=== PATIENT | male | born 1990 | race Caucasian/White ===

== ENCOUNTER 2020-01-15 10:31 | Emergency (ER) | payer OTHER, SELFPAY ==
[2020-01-15 10:49] VITALS: BP 134/78; PULSE 81; RESP 20; TEMP 36.4; O2SAT 97
--- NOTE | 2020-01-15 11:10 | ED.DENTAL ---
HPI - Dental/Oral General Chief complaint: Dental/Oral Stated complaint: abscess tooth Time Seen by Provider: 01/15/20 10:56 Source: patient and RN notes reviewed Mode of arrival: ambulatory Limitations: no limitations History of Present Illness HPI Narrative: Patient presents today complaining of right lower dental pain since yesterday, worse today. States he had a tooth break off a few months ago while he was brushing. Currently rates his pain 10 and has been using ibuprofen and Orajel with relief. Smokes 1 pack/day. He is currently on day 10 of inpatient drug rehab at [facility]. Denies any additional symptoms. MD Complaint: tooth pain Related Data Home Medications Medication Instructions Recorded Confirmed buprenorphine-naloxone [Suboxone] 2 film BUCCAL TID 01/15/20 01/15/20 bupropion HCl [Wellbutrin SR] 100 mg PO DAILY 01/15/20 01/15/20 quetiapine [Seroquel] 25 mg PO BID 01/15/20 01/15/20 quetiapine [Seroquel] 100 mg PO HS 01/15/20 01/15/20 Allergies Allergy/AdvReac Type Severity Reaction Status Date / Time No Known Allergies Allergy Verified 01/15/20 10:59 Review of Systems Review of Systems: Narrative: CONSTITUTIONAL: Denies body aches, fever, chills, or sweats. EYES: Denies visual changes, redness, or discharge. ENT: Denies rhinorrhea, congestion, sore throat, or otalgia.+ Dental pain CARDIOVASCULAR: Denies chest pain, palpitations, or edema. RESPIRATORY: Denies cough or dyspnea. GASTROINTESTINAL: Denies abdominal pain, nausea, vomiting, or diarrhea. GENITOURINARY: Denies dysuria or hematuria. SKIN: Denies rash, itching, or wounds. MUSCULOSKELETAL: Denies back pain, joint pain, or myalgia. NEUROLOGIC: Denies headache, numbness, tingling, or weakness. PSYCH: Denies depression or anxiety. [facility] Social History Social History (Updated 01/15/20 @ 11:11 by Valencia Goldstein, EXTRUDER, ) Substance use: former Substance use type: former substance user, heroin and amphetamines Gender identity (if verbalized by the patient): Male Comments At time of signature, I have reviewed and agree with nursing past medical, surgical, social and family history unless otherwise noted. Please see nursing chart for further information. There is no relevant family history pertinent to the presenting complaint Exam Narrative: Exam Narrative: GENERAL: Well-appearing, well-nourished, and in no acute distress. HEAD: Normocephalic, atraumatic. EYES: EOMI. No redness or drainage. Conjunctivae normal. ENT: Mucous membranes pink and moist. Throat normal. Uvula midline. Tooth #31 and 32 are broken off at the gumline and brown in color. Mild surrounding erythema and edema of the gingiva. No obvious periapical abscess. Poor dentition throughout. NECK: Normal AROM. Supple. No lymphadenopathy. CHEST: No respiratory distress. EXTREMITIES: Normal range of motion. No edema. SKIN: Warm, dry, no rash. Capillary refill normal. Normal skin turgor. NEURO: No focal deficits. Alert and oriented x3. Gait steady. PSYCH: Normal affect. No signs of depression or anxiety. Course Vital Signs Vital signs: Vital Signs Temperature 97.5 F L 01/15/20 10:49 Pulse Rate 81 01/15/20 10:49 Respiratory Rate 20 01/15/20 10:49 Blood Pressure 134/78 01/15/20 10:49 Pulse Oximetry 97 01/15/20 10:49 Temperature 97.5 F L 01/15/20 10:49 Pulse Rate 81 01/15/20 10:49 Respiratory Rate 20 01/15/20 10:49 Blood Pressure 134/78 01/15/20 10:49 Pulse Oximetry 97 01/15/20 10:49 Reviewed. Pt has been instructed to follow up with his PCP regarding his elevated blood pressure today. MDM - Dental/Oral Differential Diagnosis Differential diagnosis: Likely gingival abscess, dental caries, toothache, dental abscess and fracture of tooth Critical Care Time Critical Care Time Critical Care Time: No Discharge Plan Discharge Clinical Impression: Infected dental caries Patient Disposition: Home, Self-Care Condition: St
== END 2020-01-15 11:18 | disposition home or self-care (01) ==
PROVIDERS: Emergency Provider Nurse Practitioner
DX: K02.9 Dental caries, unspecified (principal); I10 Essential (primary) hypertension; F41.9 Anxiety disorder, unspecified
CPT/HCPCS: 99213; G0463

== ENCOUNTER 2020-03-13 00:20 | Emergency (ER) | payer OTHER, SELFPAY ==
[2020-03-13 00:19] VITALS: BP 121/76; PULSE 96; RESP 14; TEMP 37.1; O2SAT 98
[2020-03-13 00:26] VITALS: RESP 14
--- NOTE | 2020-03-13 00:29 | ED.OVERDOSE ---
HPI - Overdose General Chief Complaint: Overdose Stated Complaint: od History of Present Illness HPI Narrative: Brought in by EMS from home for a heroin overdose. He was found unresponsive with a needle in his arm. He was given 4 mg intranasal narcan and regained consciousness. He admits to using heroin. He was not attempting to harm himself. He has no complaints at this time. Related Data Home Medications Medication Instructions Recorded Confirmed buprenorphine-naloxone [Suboxone] 2 film BUCCAL TID 01/15/20 01/15/20 bupropion HCl [Wellbutrin SR] 100 mg PO DAILY 01/15/20 01/15/20 quetiapine [Seroquel] 25 mg PO BID 01/15/20 01/15/20 quetiapine [Seroquel] 100 mg PO HS 01/15/20 01/15/20 Allergies Allergy/AdvReac Type Severity Reaction Status Date / Time No Known Allergies Allergy Verified 03/13/20 00:27 Review of Systems Review of Systems: All systems reviewed & are unremarkable except as noted in HPI and below Constitutional: Constitutional: Denies fever(s) Cardiovascular: Cardiovascular: Denies chest pain Respiratory: Respiratory: Denies dyspnea Gastrointestinal: Gastrointestinal: Denies abdominal pain [facility] Social History Social History (Updated 03/13/20 @ 04:48 by Yehuda Carty MD) Substance use: current Substance use type: heroin and amphetamines Gender identity (if verbalized by the patient): Male Exam Const: General: healthy appearing, no acute distress and alert Orientation/consciousness: patient oriented x3 HENMT: Head: normal to inspection Eyes: Pupils: Equal, round and reactive pupils present Resp: Effort & Inspection: normal respiratory effort Auscultation: clear to auscultation bilaterally Cardio: Rate: regular rate Rhythm: regular rhythm GI: GI Palp: Yes Soft to palpation and No Tenderness to palpation present (GI) Neuro: General: patient oriented x3, moves all extremities, no focal motor deficits and CN's II-XI intact bilaterally Speech: normal speech Course Vital Signs Vital signs: Vital Signs Temperature 37.1 C 03/13/20 00:19 Pulse Rate 96 03/13/20 00:19 Respiratory Rate 14 03/13/20 00:19 Blood Pressure 121/76 03/13/20 00:19 Pulse Oximetry 98 03/13/20 00:19 Temperature 37.1 C 03/13/20 00:19 Pulse Rate 93 03/13/20 01:43 Respiratory Rate 16 03/13/20 01:43 Blood Pressure 116/70 03/13/20 01:43 Pulse Oximetry 99 03/13/20 01:43 MDM - Overdose MDM Narrative Medical decision making narrative: Observed for 90 minutes after narcan. Discharge Plan Discharge Clinical Impression: Heroin overdose Qualifiers: Encounter type: initial encounter Injury intent: accidental or unintentional Qualified Code(s): T40.1X1A - Poisoning by heroin, accidental (unintentional), initial encounter Patient Disposition: Home, Self-Care Condition: Stable Instructions: Adult Overdose (ED) Prescriptions: No Action quetiapine [Seroquel] 25 mg Tablet 25 mg PO BID RF: 0 quetiapine [Seroquel] 100 mg Tablet 100 mg PO HS RF: 0 bupropion HCl [Wellbutrin SR] 100 mg Tablet Sustained-Release 12 Hr 100 mg PO DAILY RF: 0 buprenorphine-naloxone [Suboxone] 2-0.5 mg Film 2 film BUCCAL TID RF: 0 amoxicillin 875 mg tablet 875 mg PO Q12H 10 Days Qty: 20 RF: 0 ibuprofen 800 mg tablet 800 mg PO TID PRN (Reason: pain) Qty: 20 RF: 0 Follow-up/Referrals: PHYSICIAN NOT ON STAFF,NONSTAFF [Primary Care Provider] - Discharge Date/Time: 03/13/20 01:43
[2020-03-13 00:30] VITALS: BP 117/72; PULSE 94; RESP 14; O2SAT 94
[2020-03-13 01:15] VITALS: BP 120/81; PULSE 79; RESP 11; O2SAT 96
[2020-03-13 01:43] VITALS: BP 116/70; PULSE 93; RESP 16; O2SAT 99
== END 2020-03-13 01:43 | disposition home or self-care (01) ==
PROVIDERS: Emergency Provider Emergency Medicine
DX: T40.1X1A Poisoning by heroin, accidental (unintentional), initial encounter (principal)
CPT/HCPCS: 99281

== ENCOUNTER 2020-05-20 06:23 | Emergency (ER) | payer OTHER, SELFPAY ==
[2020-05-20 06:28] VITALS: BP 139/91; PULSE 105; RESP 20; TEMP 36.6; O2SAT 100
[2020-05-20 06:57] LABS: Basophils Percent Auto 0.5 % (0.2-1.2); Eosinophils Absolute Auto 0.4 K/mm3 (0-0.3); Eosinophils Percent Auto 4.6 % (0-4.4); Hematocrit 40.1 % (42.0-52.0); Hemoglobin 14.1 g/dL (14.0-18.0); Immature Granulocyte Absolute 0.02 K/mm3 (0.00-0.031); Immature Granulocyte Percent A 0.2 % (0-0.5); Lymphocytes Absolute Auto 2.19 K/mm3 (0.9-3.2); Lymphocytes Percent Auto 24.9 % (18.3-44.2); Mean Corpuscular HGB Conc 35.2 g/dl (32-36); Mean Corpuscular Hemoglobin 31.1 pg (26-34); Mean Corpuscular Volume 88.3 fl (80-100); Mean Platelet Volume 11.4 fl (7.4-10.4); Monocytes Absolute Auto 0.8 K/mm3 (0.1-0.6); Monocytes Percent Auto 9.1 % (2.6-8.5); Neutrophils Absolute Auto 5.3 K/mm3 (1.3-6.7); Neutrophils Percent Auto 60.7 % (45.5-73.1); Platelet Count Result 166 k/mm3 (150-375); Red Blood Count 4.54 M/mm3 (4.6-6.20); Red Cell Distribution Width 11.4 % (11.5-14.5); White Blood Count 8.8 K/mm3 (4.5-10.0)
[2020-05-20 07:05] LABS: Creatine Kinase 155 U/L (55-170)
[2020-05-20 07:08] LABS: Alanine Aminotransferase 25 U/L (4-50); Albumin Level 4.3 g/dL (3.5-5.1); Alkaline Phosphatase 61 U/L (38-126); Anion Gap 8 mmol/L (8-16); Aspartate Amino Transferase 26 U/L (17-59); Bilirubin,Total 0.6 mg/dL (0.2-1.3); Blood Urea Nitrogen 26 mg/dL (9-20); Calcium 9.1 mg/dL (8.4-10.2); Carbon Dioxide 32 mmol/L (22-30); Chloride 100 mmol/L (98-107); Estimated CRCL calculation 127 ml/min; Estimated Glomerular Filt Rate > 60; Glucose 106 mg/dL (75-110); Sodium 140 mmol/L (137-145)
[2020-05-20 07:11] LABS: Ethanol < 10 mg/dL (<10)
[2020-05-20 07:14] LABS: Potassium 3.7 mmol/L (3.4-5.0)
--- NOTE | 2020-05-20 07:50 | ED.GENADULT ---
HPI - General Adult General Chief complaint: Unspecified Stated complaint: drug use Time Seen by Provider: 05/20/20 07:38 Source: patient and EMS History of Present Illness HPI narrative: 30 years old white female brought to the emergency room by ambulance. Patient lives with his family who called the ambulance because been taken drugs. Patient told me that he been using meth every day then quit and started using it every 3 weeks lately. Seem like patient had heroin, Seroquel and meth last night thus why his family called the ambulance. Patient denies any fever, chills, nausea, vomiting, headache, sore throat, shortness of breath, chest pain, back pain or abdominal pain. Patient also denies any suicidal or homicidal ideation. Currently feeling okay and would like to go home. Patient uses drugs, denies drinking alcohol or using marijuana. Related Data Home Medications Medication Instructions Recorded Confirmed buprenorphine-naloxone [Suboxone] 2 film BUCCAL TID 01/15/20 01/15/20 bupropion HCl [Wellbutrin SR] 100 mg PO DAILY 01/15/20 01/15/20 quetiapine [Seroquel] 25 mg PO BID 01/15/20 01/15/20 quetiapine [Seroquel] 100 mg PO HS 01/15/20 01/15/20 Allergies Allergy/AdvReac Type Severity Reaction Status Date / Time No Known Allergies Allergy Verified 03/13/20 00:27 Review of Systems Review of Systems: Narrative: CONSTITUTIONAL: Denies fever, chills, or sweats. EYES: Denies visual changes, redness, or discharge. ENT: Denies rhinorrhea, congestion, sore throat, or otalgia. CARDIOVASCULAR: Denies chest pain, palpitations, or edema. RESPIRATORY: Denies cough or dyspnea. GASTROINTESTINAL: Denies abdominal pain, nausea, vomiting, or diarrhea. GENITOURINARY: Denies dysuria or hematuria. SKIN: Denies rash or itching. MUSCULOSKELETAL: Denies back pain, joint pain, or myalgia. NEUROLOGIC: Denies headache, numbness, or weakness. PSYCHIATRIC: Denies anxiety or depression. [facility] Social History Social History (Updated 03/13/20 @ 04:48 by Yehuda Carty MD) Substance use: current Substance use type: heroin and amphetamines Gender identity (if verbalized by the patient): Male Exam Narrative: Exam Narrative: General appearance: Well-developed, well-nourished Skin: Normal color Head: Normocephalic, nontraumatic Eyes: Clear conjunctiva ENT: Oropharynx normal, ears normal, nose normal Neck: Supple, nontender Chest and respiratory: Airway patent, no respiratory distress, no accessory muscle use Heart: Regular rate/rhythm Abdomen: Soft, nontender, no organomegaly, quiet bowel sounds Vascular: Normal peripheral pulses, normal capillary refill. Musculoskeletal: Normal range of motion, nontender back Neurologic: Alert and oriented ?3, [employer] is normal as tested, no gross motor deficit Course Course Emergency Course: Improved Vital Signs Vital signs: Vital Signs Temperature 36.6 C 05/20/20 06:28 Pulse Rate 105 H 05/20/20 06:28 Respiratory Rate 20 05/20/20 06:28 Blood Pressure 139/91 H 05/20/20 06:28 Pulse Oximetry 100 05/20/20 06:28 Temperature 36.6 C 05/20/20 06:28 Pulse Rate 105 H 05/20/20 06:28 Respiratory Rate 20 05/20/20 06:28 Blood Pressure 139/91 H 05/20/20 06:28 Pulse Oximetry 100 05/20/20 06:28 Medical Decision Making [facility] Narrative Medical decision making narrative: Patient presents with using drugs. Denying any suicidal or homicidal ideation. Blood work-up showed no acute abnormalities, currently patient feeling okay, awake alert oriented x4. Patient is ready to go home. Differential Diagnosis Differential Diagnosis: Drug abuse, depression Vital Signs Vital Signs: Vital Signs Temperature 36.
[2020-05-20 08:09] VITALS: PULSE 92; RESP 16
== END 2020-05-20 08:12 | disposition home or self-care (01) ==
PROVIDERS: General Practice; Emergency Provider Emergency Medicine; PCP Family Medicine
DX: F19.10 Other psychoactive substance abuse, uncomplicated (principal)
CPT/HCPCS: 36415; 80053; 80307; 82550; 84443; 85025; 99283

== ENCOUNTER 2020-11-06 03:57 | Emergency (ER) | payer OTHER, SELFPAY ==
[2020-11-06 03:55] VITALS: BP 128/82; PULSE 109; RESP 18; O2SAT 93
--- NOTE | 2020-11-06 03:57 | ED.GENADULT ---
HPI - General Adult General Chief complaint: Unspecified Stated complaint: manic Time Seen by Provider: 11/06/20 03:57 History of Present Illness HPI narrative: EMS called out for unresponsive episode. When they arrived they found him drowsy and confused. He admits to injecting what he thought was meth. He says that it may have contained something else that had this effect. He was not trying to harm himself. He is currently in the process of getting placed in treatment. Related Data Home Medications Medication Instructions Recorded Confirmed buprenorphine-naloxone [Suboxone] 2 film BUCCAL TID 01/15/20 01/15/20 bupropion HCl [Wellbutrin SR] 100 mg PO DAILY 01/15/20 01/15/20 quetiapine [Seroquel] 25 mg PO BID 01/15/20 01/15/20 quetiapine [Seroquel] 100 mg PO HS 01/15/20 01/15/20 Allergies Allergy/AdvReac Type Severity Reaction Status Date / Time No Known Allergies Allergy Verified 03/13/20 00:27 Review of Systems Review of Systems: All systems reviewed & are unremarkable except as noted in HPI and below Constitutional: Constitutional: Reports no additional constitutional complaints ENT: Reports system reviewed and no additional complaints, except as documented Cardiovascular: Cardiovascular: Reports no additional cardiovascular complaints Respiratory: Respiratory: Reports no additional respiratory complaints Gastrointestinal: Gastrointestinal: Reports no additional gastrointestinal complaints Genitourinary: Genitourinary: Reports no additional male genitourinary complaints Musculoskeletal: Musculoskeletal: Reports no additional musculoskeletal complaints Neurologic: Reports confusion Psychiatric: Psychiatric: Denies homicidal ideation and Denies suicidal ideation [facility] Social History Social History Substance use: current Substance use type: heroin and amphetamines Gender identity (if verbalized by the patient): Male Exam Const: General: cooperative, comfortable and no acute distress Nutritional Appearance: average body habitus HENMT: Head: normal to inspection Mouth: Yes Normal oral and palatal mucosa present Eyes: General: appearance normal, both eyes and all related structures Pupils: Equal, round and reactive pupils present Neck: Neck: normal visual inspection Resp: Effort & Inspection: normal respiratory effort Auscultation: clear to auscultation bilaterally Cardio: Rate: tachycardic Rhythm: regular rhythm Heart sounds: no murmurs Skin: General skin exam: normal color Neuro: General: patient oriented x3, moves all extremities, no focal motor deficits and CN's II-XI intact bilaterally Course Vital Signs Vital signs: Vital Signs Pulse Rate 109 H 11/06/20 03:55 Respiratory Rate 18 11/06/20 03:55 Blood Pressure 128/82 11/06/20 03:55 Pulse Oximetry 93 11/06/20 03:55 Pulse Rate 98 11/06/20 05:11 Respiratory Rate 18 11/06/20 05:11 Blood Pressure 126/92 H 11/06/20 05:11 Pulse Oximetry 99 11/06/20 05:11 Medical Decision Making MDM Narrative Medical decision making narrative: Awake and alert on arrival. No intent to harm himself. Observed for a short time and feeling ready for discharge. Differential Diagnosis Differential Diagnosis: Polysubstance abuse, other Medical Records Medical records reviewed: Yes I reviewed the external patient's medical records. Vital Signs Vital Signs: Vital Signs Pulse Rate 109 H 11/06/20 03:55 Respiratory Rate 18 11/06/20 03:55 Blood Pressure 128/82 11/06/20 03:55 Pulse Oximetry 93 11/06/20 03:55 Pulse Rate 98 11/06/20 05:11 Respiratory Rate 18 11/06/20 05:11 Blood Pressure 126/92 H 11/06/20 05:11 Pulse Oximetry 99 11/06/20 05:11 Discharge Plan Discharge Clinical Impression: Polysubstance abuse Patient Disposition: Home, Self-Care Condition: Stable Instructions: Polysubstance Abuse (ED) Prescriptions: No Acti
[2020-11-06 04:06] VITALS: PULSE 111
[2020-11-06 05:11] VITALS: BP 126/92; PULSE 98; RESP 18; O2SAT 99
== END 2020-11-06 05:14 | disposition home or self-care (01) ==
PROVIDERS: Emergency Provider Emergency Medicine; PCP Family Medicine
DX: F15.10 Other stimulant abuse, uncomplicated (principal); F11.10 Opioid abuse, uncomplicated
CPT/HCPCS: 99281

== ENCOUNTER 2020-11-11 19:58 | Emergency (ER) | payer OTHER, SELFPAY ==
[2020-11-11 19:58] VITALS: BP 149/94; PULSE 113; RESP 12; TEMP 36.9; O2SAT 97
--- NOTE | 2020-11-11 20:46 | ED.GENADULT ---
HPI - General Adult General Chief complaint: Unspecified Stated complaint: drug use today - emotional Time Seen by Provider: 11/11/20 20:12 Source: patient Mode of arrival: ambulatory Limitations: no limitations History of Present Illness HPI narrative: Patient is a 30-year-old male brought in by EMS after his mother and sister called due to his drug use . Patient states that he was trying to move out of the house after his mother kicked him out due to continued methamphetamine use, admits that he has a drug addict. Patient states that he would not leave and locked himself inside his room his mother and sister called 911. Patient denies any suicidal or homicidal ideations. Patient denies any thoughts of self injury. Patient states that he uses drugs to get high and not to hurt himself. Patient states that he is planning to move to his aunts [place] the [place] so he can get out of this town and avoid the drugs. Patient denies any auditory visual hallucinations. Patient is alert and oriented x4. Patient has no complaints at this time. Related Data Home Medications Medication Instructions Recorded Confirmed buprenorphine-naloxone [Suboxone] 2 film BUCCAL TID 01/15/20 01/15/20 bupropion HCl [Wellbutrin SR] 100 mg PO DAILY 01/15/20 01/15/20 quetiapine [Seroquel] 25 mg PO BID 01/15/20 01/15/20 quetiapine [Seroquel] 100 mg PO HS 01/15/20 01/15/20 Allergies Allergy/AdvReac Type Severity Reaction Status Date / Time No Known Allergies Allergy Verified 03/13/20 00:27 Review of Systems Review of Systems: All systems reviewed & are unremarkable except as noted in HPI and below Constitutional: Constitutional: Denies body ache(s), Denies chills, Denies excessive sweating, Denies fatigue, Denies fever(s), Denies headache(s), Denies lethargy, Denies malaise, Denies weakness and Denies weight loss Eyes: Eyes: Denies blurry vision, Denies change in vision and Denies loss of vision ENT: Denies dizziness, Denies ear discharge, Denies headache(s), Denies lip swelling, Denies epistaxis, Denies nasal congestion, Denies neck pain, Denies throat swelling and Denies tongue swelling Cardiovascular: Cardiovascular: Denies chest pain, Denies chest pain at rest, Denies chest pain with activity, Denies diaphoresis, Denies rapid heart rate, Denies edema, Denies irregular heart rhythm, Denies lightheadedness, Denies palpitations, Denies dyspnea and Denies dyspnea on exertion Respiratory: Respiratory: Denies chest congestion, Denies cough, Denies hemoptysis, Denies dyspnea and Denies dyspnea on exertion Gastrointestinal: Gastrointestinal: Denies abdominal pain, Denies melena, Denies hematochezia, Denies diarrhea, Denies nausea, Denies vomiting and Denies hematemesis Musculoskeletal: Musculoskeletal: Denies abnormal gait, Denies deformity, Denies joint swelling, Denies limited range of motion, Denies neck pain and Denies numbness Neurologic: Denies Abnormal speech present, Denies abnormal gait, Denies confusion, Denies dizziness, Denies headache(s), Denies focal weakness, Denies loss of vision, Denies numbness, Denies Other visual disturbances, Denies Sensory deficit (Neuro) and Denies weakness Psychiatric: Psychiatric: Denies confusion, Denies depression, Denies auditory hallucinations, Denies homicidal ideation and Denies suicidal ideation Endocrine: Endocrine: Denies cold intolerance, Denies excessive sweating, Denies fatigue, Denies heat intolerance and Denies palpitations Hematologic/Lymphatic: Hematologic/Lymphatic: Denies easy bleeding and Denies easy bruising Allergic/Immunologic: Allergic/Immunologic: Denies lip swelling, Denies throat swelling and Denies tongue swelling [facility] Social History Social History Substance use: current Substance use type: heroin and amphetamines Gender identity (if verbalized by the patient): Male Comments Past medical history: Drug abuse Family history
--- NOTE | 2020-11-11 21:43 | PC.NURSE ---
pt left without d/c papers.
== END 2020-11-11 21:43 | disposition home or self-care (01) ==
PROVIDERS: Emergency Provider Emergency Medicine; PCP Family Medicine
DX: F19.20 Other psychoactive substance dependence, uncomplicated (principal)
CPT/HCPCS: 99281

== ENCOUNTER 2021-03-10 06:56 | Emergency (ER) | payer OTHER, SELFPAY ==
[2021-03-10 06:58] VITALS: BP 141/95; PULSE 125; RESP 141; TEMP 36.1; O2SAT 97
--- NOTE | 2021-03-10 07:06 | ECG_ITS ---
Measurements Intervals [place] Rate: 114 P: 56 IN: 156 QRS: 43 QRSD: 102 T: 28 QT: 334 QTc: 461 Interpretive Statements SINUS TACHYCARDIA BASELINE ARTIFACT- II, III, AVR, AVF, V3-V6 ABNORMAL ECG Electronically Signed On 03-10-2021 7:35:47 CDT by Froilan Elam D.O.
[2021-03-10 07:28] LABS: Hematocrit 42.2 % (42.0-52.0); Mean Corpuscular HGB Conc 33.2 g/dl (32-36); Mean Corpuscular Hemoglobin 29.9 pg (26-34); Mean Platelet Volume 11.6 fl (7.4-10.4); Platelet Count Result 246 k/mm3 (150-375); Red Blood Count 4.69 M/mm3 (4.6-6.20); Red Cell Distribution Width 12.5 % (11.5-14.5); White Blood Count 10.4 K/mm3 (4.5-10.0)
[2021-03-10 07:34] LABS: Alanine Aminotransferase 56 U/L (4-50); Albumin Level 4.5 g/dL (3.5-5.1); Alkaline Phosphatase 102 U/L (38-126); Anion Gap 10 mmol/L (8-16); Aspartate Amino Transferase 58 U/L (17-59); Bilirubin,Total 0.5 mg/dL (0.2-1.3); Blood Urea Nitrogen 22 mg/dL (9-20); Carbon Dioxide 29 mmol/L (22-30); Chloride 104 mmol/L (98-107); Estimated Glomerular Filt Rate > 60; Glucose 102 mg/dL (65-110); Potassium 3.8 mmol/L (3.4-5.0); Sodium 143 mmol/L (137-145)
[2021-03-10 08:12] VITALS: RESP 20
--- NOTE | 2021-03-10 08:30 | PC.NURSE ---
Care coordination to room to talk to patient and mom about drug rehab options
--- NOTE | 2021-03-10 08:39 | PCCCNOTE ---
Care Coordination was asked to speak with pt's mother about rehab facilities and process to get pt admitted. Mother states pt has been in rehab at [facility] recently and pt was told if he relapsed to call them. Encouraged mother to place call to [facility]. Gave mother list of rehab facilities in area and RN had given mother several resources as well.
--- NOTE | 2021-03-10 09:16 | ED.GENADULT ---
HPI - General Adult General Chief complaint: Unspecified Stated complaint: seeking help for drug abuse Time Seen by Provider: 03/10/21 07:00 Source: patient History of Present Illness HPI narrative: Patient states that he was using Fentanyl and Meth this morning. He was apparently found sleeping next to a neighbor's car. He thought his neighbor call EMS and he was brought here. He has states that he feels fine and has no complaint. He has no pain. He denies any SI or HI. Mother states that he has been to rehab in the past. Related Data Home Medications Medication Instructions Recorded Confirmed buprenorphine-naloxone [Suboxone] 2 film BUCCAL TID 01/15/20 01/15/20 bupropion HCl [Wellbutrin SR] 100 mg PO DAILY 01/15/20 01/15/20 quetiapine [Seroquel] 25 mg PO BID 01/15/20 01/15/20 quetiapine [Seroquel] 100 mg PO HS 01/15/20 01/15/20 Allergies Allergy/AdvReac Type Severity Reaction Status Date / Time No Known Allergies Allergy Verified 03/13/20 00:27 Review of Systems Constitutional: Constitutional: Denies chills, Denies fever(s), Denies headache(s) and Denies weakness Eyes: Eyes: Denies blurry vision ENT: Denies headache(s) and Denies neck pain Cardiovascular: Cardiovascular: Denies chest pain and Denies dyspnea Respiratory: Respiratory: Denies cough and Denies dyspnea Gastrointestinal: Gastrointestinal: Denies abdominal pain, Denies diarrhea, Denies nausea and Denies vomiting Genitourinary: Genitourinary: Denies hematuria and Denies dysuria Musculoskeletal: Musculoskeletal: Denies back pain and Denies neck pain Neurologic: Denies headache(s) and Denies weakness [facility] Social History Social History Substance use: current Substance use type: heroin and amphetamines Gender identity (if verbalized by the patient): Male Exam Const: General: no acute distress and well developed Orientation/consciousness: oriented to person, oriented to place, oriented to time and patient oriented x3 HENMT: Head: normocephalic Ears: external ears normal General nose exam: Normal external nose present Eyes: General: appearance normal, both eyes and all related structures Conjunctivae: conjunctivae normal Neck: Neck: normal visual inspection and full ROM Chest: Chest palpation & inspection: normal inspection of the chest and no tenderness Resp: Effort & Inspection: normal respiratory effort Auscultation: clear to auscultation bilaterally Cardio: Rate: regular rate Rhythm: regular rhythm GI: GI Palp: No abdominal tenderness and Yes Soft to palpation Skin: General skin exam: normal color and turgor normal Neuro: General: oriented to person, oriented to place, oriented to time and patient oriented x3 Cognition (Neuro): normal cognition Speech: normal speech Motor exam (neuro): 5/5 motor strength present throughout and Motor abnormalites present (occasional jerking movement of arms noted) Extrem: General: normal to inspection, full ROM and no pedal edema Psych: Appearance: grossly normal Mental Status: mental status grossly normal Affect: normal affect Course Reevaluation(s) Reevaluation #1: Instructed patient to abstain from using drugs and go to outpatient rehab. Date: 03/10/21 Time: 09:21 Vital Signs Vital signs: Vital Signs Temperature 36.1 C L 03/10/21 06:58 Pulse Rate 125 H 03/10/21 06:58 Respiratory Rate 141 H 03/10/21 06:58 Blood Pressure 141/95 H 03/10/21 06:58 Pulse Oximetry 97 03/10/21 06:58 Temperature 36.1 C L 03/10/21 06:58 Pulse Rate 78 03/10/21 10:36 Respiratory Rate 16 03/10/21 10:36 Blood Pressure 131/87 03/10/21 10:36 Pulse Oximetry 95 03/10/21 10:36 Medical Decision Making Vital Signs Vital Signs: Vital Signs Temperature 36.1 C L 03/10/21 06:58 Pulse Rate 125 H 03/10/21 06:58 Respiratory Rate 141 H 03/10/21 06:58 Blood Pressure 141/95 H 03/10/21 06:58 Pulse Oximetry 97
[2021-03-10 09:47] LABS: Add Urine Microscopic? YES; Appearance Urine Clear (Clear); Bilirubin Urine Negative (Negative); Blood Urine Negative (Negative); Color Urine Yellow (Yellow); Glucose Urine UA Negative (Negative); Ketones Urine 1+ mg/dL (Negative); Leukocyte Esterase Ur Negative LEU/UL (Negative); Mucus Urine Rare /lpf; Nitrate Urine Negative (Negative); Protein Urine 1+ mg/dL (Negative); RBC Urine 0-2 /hpf (0-2); Specific Grav Ur 1.024 (1.001-1.035); Urobilinogen Urine Negative mg/dL (<2.0); WBC Urine 0-3 /hpf
[2021-03-10 10:15] LABS: Amphetamine Screen Urine Positive (Negative); Barbiturate Screen Urine Negative (Negative); Benzodiazepines Screen Urine Negative (Negative); Cannabinoid Screen Urine Negative (Negative); Cocaine Screen Urine Negative (Negative); Methadone Screen Urine Negative (Negative); Opiate Screen Urine Negative (Negative); Phencyclidine Screen Urine Negative (Negative)
[2021-03-10 10:36] VITALS: BP 131/87; PULSE 78; RESP 16; O2SAT 95
== END 2021-03-10 10:37 | disposition home or self-care (01) ==
PROVIDERS: Emergency Provider Emergency Medicine
DX: F19.10 Other psychoactive substance abuse, uncomplicated (principal); R00.0 Tachycardia, unspecified
CPT/HCPCS: 36415; 80053; 80307; 81001; 85025; 93005; 99283

== ENCOUNTER 2021-04-14 00:52 | Emergency (ER) | payer OTHER, SELFPAY ==
[2021-04-14 00:55] VITALS: BP 130/85; PULSE 115; RESP 18; TEMP 36.4; O2SAT 100
--- NOTE | 2021-04-14 01:35 | PC.NURSE ---
Pt will not need crisis evaluation per ERP, pt items returned.
[2021-04-14 01:43] VITALS: BP 126/75; PULSE 115; O2SAT 100
--- NOTE | 2021-04-14 01:56 | ED.GENADULT ---
HPI - General Adult General Chief complaint: Psychiatric Symptoms Stated complaint: mental eval Time Seen by Provider: 04/14/21 01:07 Source: RN notes reviewed History of Present Illness HPI narrative: Patient presents emergency department from [facility] via EMS for accidental ingestion. Patient states he is on Vyvanse and Seroquel at night he states that this evening he had taken one of his Seroquel's 100 mg that he takes at night prior to going to bed and then had forgotten he had taken it and took a second approximately an hour later he states is approximately at 8:30 PM the patient states that time he had fallen asleep in his room and when that occurred he had no playing on his phone which had been pocket dialing emergency services over and over as he had been laying on states he has no complaints at this time he denies any suicidal ideation or homicidal ideation he states he has no auditory or visual hallucinations states he has had no recent illness he states he did do heroin yesterday morning and is on Suboxone and is scheduled to be starting rehab in [facility] in 8 days he states that he currently is staying at the [facility] until he goes to rehab Related Data Home Medications Medication Instructions Recorded Confirmed buprenorphine-naloxone [Suboxone] 2 film BUCCAL TID 01/15/20 01/15/20 bupropion HCl [Wellbutrin SR] 100 mg PO DAILY 01/15/20 01/15/20 quetiapine [Seroquel] 25 mg PO BID 01/15/20 01/15/20 quetiapine [Seroquel] 100 mg PO HS 01/15/20 01/15/20 Allergies Allergy/AdvReac Type Severity Reaction Status Date / Time No Known Allergies Allergy Verified 04/14/21 01:09 Review of Systems Review of Systems: Gen.: Denies fevers or chills Eyes: Denies eye pain or visual change ENT: Denies congestion Respiratory: Denies shortness of breath or cough CV: Denies chest pain or palpitations GI: Denies abdominal pain nausea, emesis or diarrhea Musculoskeletal: Denies back pain or muscle pain Neuro: Denies numbness, tingling, weakness or focal weakness Skin: Denies rash Except as documented, all other systems reviewed and negative [facility] Past Medical History Medical History (Updated 04/14/21 @ 02:57 by Albert Conroy DO) Bipolar 1 disorder Social History Social History Substance use: current Substance use type: heroin Gender identity (if verbalized by the patient): Male Exam Narrative: APPEARANCE: No acute distress, nontoxic, resting in bed EYES: EOMI HEENT: Normocephalic, atraumatic, OMM RESPIRATORY: No respiratory distress Clear to auscultation bilaterally with no rhonchi wheezing or rales. CARDIOVASCULAR: Regular rate and rhythm without murmurs rubs or gallops. ABDOMINAL: Soft, nontender, nondistended, no rebound or guarding MUSCULOSKELETAl: Moves all extremities. No clubbing, cyanosis or edema. NEURO: Awake and alert x 4. Following commands, speech normal, no focal deficits SKIN:: Warm, dry. No rashes lesions or abrasions PSYCHIATRIC: Normal affect/mood, denies suicidal ideation, denies homicidal ideation Course Course Emergency Course: Patient remained monitored in the ER for 2 hours remains awake and alert x3 will discharge at this time Vital Signs Vital signs: Vital Signs Temperature 97.5 F L 04/14/21 00:55 Pulse Rate 115 H 04/14/21 00:55 Respiratory Rate 18 04/14/21 00:55 Blood Pressure 130/85 04/14/21 00:55 Pulse Oximetry 100 04/14/21 00:55 Temperature 98.8 F 04/14/21 02:31 Pulse Rate 98 04/14/21 02:31 Respiratory Rate 18 04/14/21 00:55 Blood Pressure 117/57 L 04/14/21 02:31 Pulse Oximetry 100 04/14/21 01:43 Medical Decision Making Vital Signs Vital Signs: Vital Signs Temperature 97.5 F L 04/14/21 00:55 Pulse Rate 115 H 04/14/21 00:55 Respiratory Rate 18 04/14/21 00:55 Blood Pressure 130/85 04/14/21 00:55 Pulse Oximetry 100 04/14/21 00:55 Temperature 98.8 F 04/14/21
[2021-04-14 02:31] VITALS: BP 117/57; PULSE 98; TEMP 37.1
[2021-04-14 03:09] VITALS: BP 124/80; PULSE 95; RESP 16; O2SAT 97
== END 2021-04-14 03:10 | disposition home or self-care (01) ==
PROVIDERS: Emergency Provider Emergency Medicine
DX: T50.901A Poisoning by unspecified drugs, medicaments and biological substances, accidental (unintentional), initial encounter (principal); F31.9 Bipolar disorder, unspecified
CPT/HCPCS: 99284

== ENCOUNTER 2021-04-15 11:03 | Emergency (ER) | payer OTHER, SELFPAY ==
--- NOTE | 2021-04-15 11:54 | ED.OVERDOSE ---
HPI - Overdose General Chief Complaint: Overdose Stated Complaint: Uncontrollable movement after using Meth Time Seen by Provider: 04/15/21 11:46 Source: patient Mode of arrival: ambulatory Limitations: no limitations History of Present Illness HPI Narrative: Patient is a 31-year-old male with a history of polysubstance abuse who presents for evaluation of erratic behavior after being seen at a [employer] this morning. Patient states that had the police called on him after using crystal methamphetamine and heroin this morning. Patient states he smoked crystal meth last night until this morning, and then used heroin this morning, causing him to act out while staying at a motel. The data recovery planner of the motel called the police, who then called an ambulance. Patient's mother then arrived to the hotel and transported here for evaluation. Patient denies any injection sites. He denies homicidal or suicidal ideation. Patient is in the process of being set up to go to an inpatient rehabilitation facility in [place]. Patient denies any current fever, chills, nausea or vomiting. He denies any current shaking activity. Mother at bedside present. States he is otherwise acting normally. Patient was not found unresponsive this morning. Patient is alert and oriented to person, place, and to time. Related Data Home Medications Medication Instructions Recorded Confirmed buprenorphine-naloxone [Suboxone] 2 film BUCCAL TID 01/15/20 01/15/20 bupropion HCl [Wellbutrin SR] 100 mg PO DAILY 01/15/20 01/15/20 quetiapine [Seroquel] 25 mg PO BID 01/15/20 01/15/20 quetiapine [Seroquel] 100 mg PO HS 01/15/20 01/15/20 Allergies Allergy/AdvReac Type Severity Reaction Status Date / Time No Known Allergies Allergy Verified 04/14/21 01:09 Review of Systems Review of Systems: CONSTITUTIONAL: Denies fever, chills, or sweats. EYES: Denies visual changes, redness, or discharge. ENT: Denies rhinorrhea, congestion, sore throat, or otalgia. CARDIOVASCULAR: Denies chest pain, palpitations, or edema. RESPIRATORY: Denies cough or dyspnea. GASTROINTESTINAL: Denies abdominal pain, nausea, vomiting, or diarrhea. GENITOURINARY: Denies dysuria or hematuria. SKIN: Denies rash or itching. Denies lesions or pain at injection sites. MUSCULOSKELETAL: Denies back pain, joint pain, or myalgia. NEUROLOGIC: Denies headache, numbness, or weakness. PSYCHIATRIC: Patient feels slightly anxious, does report a history of depression [facility] Past Medical History Medical History Bipolar 1 disorder Social History Social History Substance use: current Substance use type: heroin Gender identity (if verbalized by the patient): Male Exam Narrative: GENERAL: Awake, alert, conversant, slightly agitated HEAD: Normocephalic, atraumatic. EYES: PERRLA and EOMI. ENT: Nares clear, no rhinorrhea or epistaxis. Mucous membranes moist. NECK: Supple. CHEST: No respiratory distress, breathing even and non labored HEART: Tachycardic rate, sinus rhythm ABDOMEN:Non distended, non tender EXTREMITIES: Normal range of motion. No edema. SKIN: Warm, dry, areas of scattered abrasions to abdomen, no abscesses, no areas of cellulitis NEURO:No focal deficits. Alert and oriented x3 Course Vital Signs Vital signs: Vital Signs Temperature 36.6 C 04/15/21 12:16 Pulse Rate 99 04/15/21 12:16 Respiratory Rate 04/15/21 12:16 Blood Pressure 127/77 04/15/21 12:16 Pulse Oximetry 96 04/15/21 12:16 Temperature 36.6 C 04/15/21 12:16 Pulse Rate 99 04/15/21 12:16 Respiratory Rate 19 04/15/21 12:16 Blood Pressure 127/77 04/15/21 12:16 Pulse Oximetry 96 04/15/21 12:16 MDM - Overdose MDM Narrative Medical decision making narrative: Patient presenting for evaluation following the use of opiates and methamphetamines. Patient is alert and oriented to person, place,
[2021-04-15 12:16] VITALS: BP 127/77; PULSE 99; RESP 19; TEMP 36.6; O2SAT 96
--- NOTE | 2021-04-15 12:26 | PC.NURSE ---
Patient on the phone with intake nurse at rehab facility.
[2021-04-15 13:00] LABS: Basophils Percent Auto 0.4 % (0.2-1.2); Eosinophils Absolute Auto 0.6 K/mm3 (0-0.3); Eosinophils Percent Auto 6.4 % (0-4.4); Hematocrit 40.2 % (42.0-52.0); Hemoglobin 13.4 g/dL (14.0-18.0); Immature Granulocyte Absolute 0.02 K/mm3 (0.00-0.031); Immature Granulocyte Percent A 0.2 % (0-0.5); Lymphocytes Absolute Auto 2.17 K/mm3 (0.9-3.2); Mean Corpuscular HGB Conc 33.3 g/dl (32-36); Mean Corpuscular Hemoglobin 30.1 pg (26-34); Mean Corpuscular Volume 90.3 fl (80-100); Mean Platelet Volume 11.8 fl (7.4-10.4); Monocytes Absolute Auto 0.9 K/mm3 (0.1-0.6); Monocytes Percent Auto 8.6 % (2.6-8.5); Neutrophils Absolute Auto 6.2 K/mm3 (1.3-6.7); Neutrophils Percent Auto 62.4 % (45.5-73.1); Platelet Count Result 201 k/mm3 (150-375); Red Blood Count 4.45 M/mm3 (4.6-6.20); Red Cell Distribution Width 12.3 % (11.5-14.5); White Blood Count 9.9 K/mm3 (4.5-10.0)
[2021-04-15 13:33] LABS: Alanine Aminotransferase 19 U/L (4-50); Albumin Level 4.3 g/dL (3.5-5.1); Alkaline Phosphatase 96 U/L (38-126); Anion Gap 7 mmol/L (8-16); Aspartate Amino Transferase 38 U/L (17-59); Bilirubin,Total 0.9 mg/dL (0.2-1.3); Blood Urea Nitrogen 20 mg/dL (9-20); Calcium 8.7 mg/dL (8.4-10.2); Carbon Dioxide 30 mmol/L (22-30); Chloride 100 mmol/L (98-107); Estimated CRCL calculation 130 ml/min; Estimated Glomerular Filt Rate > 60; Glucose 95 mg/dL (65-110); Potassium 3.7 mmol/L (3.4-5.0); Sodium 137 mmol/L (137-145)
[2021-04-15 13:43] VITALS: BP 119/69; PULSE 83; RESP 14; O2SAT 96
[2021-04-15 14:40] VITALS: BP 121/80; PULSE 83; RESP 16; TEMP 36.3; O2SAT 98
== END 2021-04-15 14:40 | disposition home or self-care (01) ==
PROVIDERS: Emergency Provider Emergency Medicine; PCP Internal Medicine Gastroenterology
DX: F11.10 Opioid abuse, uncomplicated (principal); F15.10 Other stimulant abuse, uncomplicated
CPT/HCPCS: 36415; 80053; 85025; 99283

== ENCOUNTER 2025-01-20 14:03 | Emergency (ER) | payer OTHER, SELFPAY ==
[2025-01-20 14:03] VITALS: BP 140/79; PULSE 71; RESP 18; TEMP 36.6; O2SAT 99
--- OUTSIDE RECORDS SUMMARY | 2025-01-20 14:16 | XMS_ITS | Patient Health Record ---
Author Organization [facility] Address [address] [place] [address] Care Team Providers Care Diesel Engine Pipe Fitter Name Role Phone Viviana Washington Primary Care Provider [facility] Saray Unavailable [phone] Allergies No Known Allergies Results Component Value Reference Range Notes PAIN MANAGEMENT, PROFILE 8 W /CONFIRMATION, URINE (SUBOXONE TESTING) Reviewed date:05/27/2024 09:35:23 AM Interpretation: Performing Lab:[facility], [facility] [id number] [facility], Enrique [id number] [place] Charles Notes/Report: 0 Alcohol Metabolites NEGATIVE <500 ng/mL Amphetamines POSITIVE <500 ng/mL Amphetamine 1073 <250 ng/mL medMATCH Amphetamine CONSISTENT See Amphetamines Notes, LDT Notes See Buprenorphine Notes, LDT Notes Methamphetamine NEGATIVE <250 ng/mL Amphetamines Comments See Amphetamines Notes, LDT Notes See Buprenorphine Notes, LDT Notes Benzodiazepines NEGATIVE <100 ng/mL Buprenorphine POSITIVE <5 ng/mL Buprenorphine 97 <2 ng/mL medMATCH Buprenorphine CONSISTENT See Amphetamines Notes, LDT Notes See Buprenorphine Notes, LDT Notes Norbuprenorphine 156 <2 ng/mL medMATCH Norbuprenorphine CONSISTENT See Amphetamines Notes, LDT Notes See Buprenorphine Notes, LDT Notes Naloxone 250 <2 ng/mL medMATCH Naloxone CONSISTENT See Amphetamines Notes, LDT Notes See Buprenorphine Notes, LDT Notes Buprenorphine Comments See Amphetamines Notes, LDT Notes See Buprenorphine Notes, LDT Notes Cocaine Metabolite NEGATIVE <150 ng/mL 6 Acetylmorphine NEGATIVE <10 ng/mL Marijuana Metabolite NEGATIVE <20 ng/mL MDMA NEGATIVE <500 ng/mL Opiates NEGATIVE <100 ng/mL Oxycodone NEGATIVE <100 ng/mL Creatinine 68.9 > or = 20.0 mg/dL pH 7.9 4.5-9.0 Oxidant NEGATIVE <200 mcg/mL PRESCRIBED DRUGS, medMATCH(R ) Reviewed date:05/27/2024 09:35:32 AM Interpretation: Performing Lab:[facility][id number] Dimitrios [id number] Leah Rondon MD Notes/Report: 0 medMATCH Summary Prescribed Prescribed Not Prescribed Consistent Inconsistent Inconsistent Suboxone(TM) Vyvanse(TM) Prescribed Drug 1 Vyvanse(TM) Prescribed Drug 2 Suboxone(TM) DRUG MONITORING TEMPLATE Reviewed date:05/27/2024 09:35:44 AM Interpretation: Performing Lab:[facility]-[id number] Dimitrios [id number] Leah Rondon MD Notes/Report: 0 Notes and Comments This drug testing is for medical treatment only. Analysis was performed as non-forensic testing and these results should be used only by healthcare providers to render diagnosis or treatment, or to monitor progress of medical conditions. Amphetamines Notes: Amphetamine detected is consistent with the use of the drug Amphetamine. Amphetamine can be a prescribed drug and is also a metabolite of methamphetamine. Buprenorphine Notes: Buprenorphine, Norbuprenorphine detected is consistent with the use of the drug(s) Buprenorphine or Buprenorphine with Naloxone. Naloxone may be negative due to poor oral bioavailability and/or short half-life. Buprenorphine, Norbuprenorphine, Naloxone detected is consistent with the use of the drug Buprenorphine and Naloxone. LDT Notes: Confirmation tests were developed and their analytical performance characteristics have been determined by [facility]. It has not been cleared or approved by the FDA. This assay has been validated pursuant to the CLIA regulations and is used for clinical purposes. medMATCH(R) enables providers to identify if drug use is consistent or inconsistent with a corresponding prescribed medication(s) list. Healthcare Providers needing Interpretation assistance, please contact us at [phone] ( ) M-F, 8am to 10pm EST Reason For Referral No Information Medications Medication SIG (Take, Route, Fr equency, Duration) Notes Start Date End Date Status SEROquel 100 MG 1 tablet at bedtime Orally Once a day Active Suboxone 4-1 MG 1 film under the ton quincy and allow to dissolve Sublingual Once a day A ctive Vyvanse 60 MG 1 capsule in the mor veronica Orally Once a day for 30 days 01/02/2025 Active Social History Tobacco Use: Social History Observation Description Date Details (start date - stop date) Never Smoker NA - NA Sex Assigned At : Social History Observation Description Sex Assigned At Male Alcohol Screen (Audit-C) Question Answer Notes Did you have a drink containing alcohol in the p ast year? No Points 0 Interpretation Negative DAST Question Answer Notes Total Score: 0 Interpretation: No problems reported Tobacco Control (Standard) Question Answer Notes Tobacco use: Nonsmoker Problems Problem Type SNOMED Code ICD Code Onset Dates Problem Status W/U Status Risk Notes Problem Depression (974813427) Depression (F32.9) Active confirmed Problem Insomnia (642157532) Insomnia (G47.00) Active confirmed Problem Anxiety (82207149) Anxiety (F41.9) Active confirmed Problem Screening - procedure intent (740519926) Special screening for other specified conditions (Z13.89) Active confirmed Problem Long-term current use of drug therapy (230445603) Encounter for long-term (current) drug use (Z79.899) Active confirmed Problem Attention deficit hyperactivity disorder (370295273) ADHD (F90.9) Active confirmed Vital Signs Heart Rate 78 /min 05/16/2024 Temperature 97.3 degrees Fahrenheit 05/16/2024 Respiratory Rate 20 /min 05/16/2024 Oximetry 97 % 05/16/2024 Blood pressure diastolic 82 mm Hg 05/16/2024 Height-cm 182.88 cm 01/02/2025 [facility] Telehealth Visit, unable to obtain Vitals Weight-kg 99.34 kg 05/16/2024 Height 72 in 01/02/2025 [facility] Telehealth Visit, unable to obtain Vitals Blood pressure systolic 130 mm Hg 05/16/2024 Weight 219 lbs 05/16/2024 BMI 29.7 kg/m2 05/16/2024 Encounters Encounter Location Date Provider Diagnosis [address] [address] 01/31/2024 Viviana Krmihire ADHD F90.9 ; Depression F32.9 and Anxiety F41.[address] [address] 03/12/2024 Viviana Krikie ADHD F90.9 ; Depression F32.9 ; Anxiety F41.9 and Insomnia G47.[address] [address] 03/28/2024 Viviana Krikie ADHD F90.9 ; Depression F32.9 and Anxiety F41.[address] [address] 04/23/2024 Viviana Krikie ADHD F90.9 ; Depression F32.9 and Anxiety F41.[address] [address] 05/16/2024 Viviana Krikie ADHD F90.9 ; Depression F32.9 ; Anxiety F41.9 and Encounter for long-term (current) drug use Z79.[address] [address] 06/13/2024 Viviana Krikie ADHD F90.9 ; Depression F32.9 and Anxiety F41.[address] [address] 07/11/2024 Viviana Krikie ADHD F90.9 ; Depression F32.9 and Anxiety F41.[address] [address] 08/09/2024 Saray Yasmany Depression F32.9 ; ADHD F90.9 and Anxiety F41.[address] [address] 09/13/2024 Viviana Oneale ADHD F90.9 ; Depression F32.9 and Anxiety F41.9 [facility] [address] [place] [address] 10/11/2024 Viviana Oneale ADHD F90.9 ; Depression F32.9 and Anxiety F41.[address] [address] 11/08/2024 Viviana Oneale ADHD F90.9 ; Depression F32.9 and Anxiety F41.9 [facility] [address] [place] [address] 12/05/2024 Viviana Krmihire ADHD F90.9 ; Depression F32.9 and Anxiety F41.[address] [address] 01/02/2025 Viviana Oneale ADHD F90.9 ; Depression F32.9 and Anxiety F41.[address] [address] 02/02/2024 Viviana Elroymihire [facility] [address] [place] [address] 02/28/2024 Viviana Oneale ADHD F90.[address] [address] 03/05/2024 Viviana Elroymihire [facility] [address] [place] [address] 06/19/2024 Viviana Elroymihire [facility] [address] [place] [address] 07/11/2024 Viviana Oneale ADHD F90.9 [facility] [address] [place] [address] 09/03/2024 Viviana Oneale ADHD F90.9 and Depression F32.[address] [address] 02/28/2024 Viviana Washington ADHD F90.9 [facility] [address] [place] [address] 03/06/2024 Viviana Washington [facility] [address] [address] 06/19/2024 Viviana Washington [facility] [address] [place] [address] 09/05/2024 Viviana Washington [facility] [address] [address] 09/05/2024 Viviana Washington Assessments Encounter Date Diagnosis (ICD Code) Assessment Notes Treatment Notes Treatment Clinical Notes Section Notes 04/23/2024 Depression (ICD-10 - F32.9) 04/23/2024 ADHD (ICD-10 - F90.9) 12/05/2024 Depression (ICD-10 - F32.9) 12/05/2024 ADHD (ICD-10 - F90.9) 11/08/2024 Depression (ICD-10 - F32.9) 11/08/2024 ADHD (ICD-10 - F90.9) 10/11/2024 Depression (ICD-10 - F32.9) 10/11/2024 ADHD (ICD-10 - F90.9) 09/13/2024 Depression (ICD-10 - F32.9) 09/13/2024 ADHD (ICD-10 - F90.9) 09/03/2024 ADHD (ICD-10 - F90.9) 08/09/2024 Depression (ICD-10 - F32.9) 08/09/2024 ADHD (ICD-10 - F90.9) 07/11/2024 ADHD (ICD-10 - F90.9) 07/11/2024 Depression (ICD-10 - F32.9) 06/13/2024 ADHD (ICD-10 - F90.9) 05/16/2024 Depression (ICD-10 - F32.9) 07/11/2024 ADHD (ICD-10 - F90.9) 06/13/2024 Depression (ICD-10 - F32.9) 05/16/2024 ADHD (ICD-10 - F90.9) 03/28/2024 Depression (ICD-10 - F32.9) 03/12/2024 ADHD (ICD-10 - F90.9) 02/28/2024 ADHD (ICD-10 - F90.9) 02/28/2024 ADHD (ICD-10 - F90.9) 01/31/2024 Depression (ICD-10 - F32.9) 03/28/2024 ADHD (ICD-10 - F90.9) 03/12/2024 Depression (ICD-10 - F32.9) 01/31/2024 ADHD (ICD-10 - F90.9) 01/02/2025 Depression (ICD-10 - F32.9) 01/02/2025 ADHD (ICD-10 - F90.9) 01/02/2025 Anxiety (ICD-10 - F41.9) 03/12/2024 Anxiety (ICD-10 - F41.9) 01/31/2024 Anxiety (ICD-10 - F41.9) 03/28/2024 Anxiety (ICD-10 - F41.9) 06/13/2024 Anxiety (ICD-10 - F41.9) 05/16/2024 Anxiety (ICD-10 - F41.9) 07/11/2024 Anxiety (ICD-10 - F41.9) 08/09/2024 Anxiety (ICD-10 - F41.9) 09/03/2024 Depression (ICD-10 - F32.9) 09/13/2024 Anxiety (ICD-10 - F41.9) 10/11/2024 Anxiety (ICD-10 - F41.9) 11/08/2024 Anxiety (ICD-10 - F41.9) 12/05/2024 Anxiety (ICD-10 - F41.9) 04/23/2024 Anxiety (ICD-10 - F41.9) 05/16/2024 Encounter for long-term (current) drug use (ICD-10 - Z79.899) 03/12/2024 Insomnia (ICD-10 - G47.00) 09/13/2024 Other Medication education and side effects discussed. Emergency services were discussed with patient. Instructed patient to go to ER if having suicidal thoughts. 08/09/2024 [place] The patient has been educated about current diagnosis, prognosis, associated risk factors and medications. Patient is to notify all providers about their currently prescribed medications. Discussed possible side effects of medications, risk vs benefits, black box warnings, any off-label use and problems to report should they occur. Patient has been explained possible tolerance or dependence may occur from the use of certain medications. Discussed risk vs benefit of current treatment plan including medications and alternative treatment options. Patient has been advised to call 911 or go to the ER as needed for thoughts of self-harm, SI/HI or worsening symptoms. Pt is to f/u with PCP as directed for routine health maintenance. Pt voices understanding to discussions and agrees with current treatment plan. F/u as directed or sooner if having any new or concerning s/s 11/08/2024 Other Medication education and side effects discussed. Emergency services were discussed with patient. Instructed patient to go to ER if having suicidal thoughts. 12/05/2024 Other Medication education and side effects discussed. Emergency services were discussed with patient. Instructed patient to go to ER if having suicidal thoughts. 03/05/2024 Other Medication education and side effects discussed. Emergency services were discussed with patient. Instructed patient to go to ER if having suicidal thoughts. 07/11/2024 Other - [place] The patient has been educated about current diagnosis, prognosis, associated risk factors and medications. Patient is to notify all providers about their currently prescribed medications. Discussed possible side effects of medications, risk vs benefits, black box warnings, any off-label use and problems to report should they occur. Patient has been explained possible tolerance or dependence may occur from the use of certain medications. Discussed risk vs benefit of current treatment plan including medications and alternative treatment options. Patient has been advised to call 911 or go to the ER as needed for thoughts of self-harm, SI/HI or worsening symptoms. Pt is to f/u with PCP as directed for routine health maintenance. Pt voices understanding to discussions and agrees with current treatment plan. F/u as directed or sooner if having any new or concerning s/s 10/11/2024 Other Medication education and side effects discussed. Emergency services were discussed with patient. Instructed patient to go to ER if having suicidal thoughts. 05/16/2024 Other Medication education and side effects discussed. Emergency services were discussed with patient. Instructed patient to go to ER if having suicidal thoughts. 01/31/2024 Other Medication education and side effects discussed. Emergency services were discussed with patient. Instructed patient to go to ER if having suicidal thoughts. 06/13/2024 Other Medication education and side effects discussed. Emergency services were discussed with patient. Instructed patient to go to ER if having suicidal thoughts. 02/02/2024 Other Medication education and side effects discussed. Emergency services were discussed with patient. Instructed patient to go to ER if having suicidal thoughts. 03/28/2024 Other Medication education and side effects discussed. Emergency services were discussed with patient. Instructed patient to go to ER if having suicidal thoughts. 03/12/2024 Other Medication education and side effects discussed. Emergency services were discussed with patient. Instructed patient to go to ER if having suicidal thoughts. 02/28/2024 Other Medication education and side effects discussed. Emergency services were discussed with patient. Instructed patient to go to ER if having suicidal thoughts. 01/02/2025 Other Medication education and side effects discussed. Emergency services were discussed with patient. Instructed patient to go to ER if having suicidal thoughts. 04/23/2024 Other Medication education and side effects discussed. Emergency services were discussed with patient. Instructed patient to go to ER if having suicidal thoughts. Plan Of Treatment Next Appt Details Provider Name:Viviana Washington, 01/30/2025 09:45:00 AM, [address], [address], Insurance Providers Payer Name Payer Address Payer Phone Subscriber Number Group Number Insured Name Patient Relationship to Insured Coverage Start Date Coverage End Date [facility] [address] [place] [phone] [id number] Nova, Gómez Self - patient is the insured 2 [facility] FFS [address] [place] [id number] Nova, Gómez Self - patient is the insured 2 [facility] Nonbillable [address] [place] [phone] [id number] Nova, Gómez Self - patient is the insured 2 Medical (General) History Medical History History ICD Code Anxiety F41.9 Depression F32.9 Insomnia, unspecified G47.00 Sleep apnea G47.30 Bipolar disorder, unspecified F31.9 Hospitalization History Reason Date(Month/Year) Hospitalization-Attempted Suicide 2008
--- OUTSIDE RECORDS SUMMARY | 2025-01-20 14:16 | XMS_ITS | Clinical Summary ---
Author Organization [facility] Address [address] [place] [address] [facility] [place] [address] Care Team Providers Care Risk Management Analyst Name Role Phone Unavailable Primary Care Provider Unavailabl e Medications lisdexamfetamin e (Vyvanse) 60 mg capsule Take 1 Capsule (60 mg) by mouth daily in the morning. Max Daily Amount: 60 mg 30 Capsule 09/12/2023 5:13 PM DOLPHIN RESEARCHER 09/12/2023 Active lisdexamfetamin e (Vyvanse) 60 mg capsule Take 1 Capsule (60 mg) by mouth daily in the morning. Max Daily Amount: 60 mg 30 Capsule 01/31/2024 5:05 PM CDT 01/31/2024 Active Encounters Date Type Department Care Team Description 12/27/2024 External Device Data [facility]CTION Provider, Abstract 12/26/2024 External Device Data [facility] Provider, Abstract 12/11/2024 External Device Data [facility] Provider, Abstract 11/06/2024 External Device Data [facility] Provider, Abstract from Last 3 Months Social History Tobacco Use Types Packs/Day Years Used Date Smoking Tobacco: Never Assessed Sex and Gender Information Value Date Recorded Sex Assigned at Male 08/15/2023 9:45 AM DOLPHIN RESEARCHER Legal Sex Male 9:21 AM DOLPHIN RESEARCHER Gender Identity Male 08/15/2023 9:45 AM DOLPHIN RESEARCHER Sexual Orientation Straight 08/15/2023 9: 45 AM DOLPHIN RESEARCHER Plan of Treatment Health Maintenance Due Date Last Done Comments DTAP/TDAP/TD VACCINES (1 - Tdap) 2011 HEPATITIS B VACCINES (1 of 3 - 19+ 3-dose series) 2011 INFLUENZA VACCINE (#1) 2024 HPV VACCINES Aged Out No longer eligi ble based on patient's age to complete this topic Insurance [employer] Commercial
--- NOTE | 2025-01-20 14:39 | ED_ITS ---
HPI - General Adult General Chief complaint: Unspecified Stated complaint: feeling dehydrated History of Present Illness HPI narrative: Patient is a 34-year-old male to the ER with concerns for dehydration. He he has been walking or riding the bus since 1:00 p.m. yesterday. Patient reports in [place] and was trying to make his way to [place]. He reports he started feeling dehydrated and his feet started hurting so he called 911. Patient reports pain is homeless. He reports he has only been urinating every other day. Patient endorses a history of ADHD, bipolar, and opioid disorder. He reports he takes Vyvanse, Seroquel and Suboxone every day. Patient denies any chest pain, shortness of breath, recent fevers, abdominal pain, or urinary symptoms. Related Data Home Medications ?Medication ?Instructions ?Recorded ?Confirmed ?Last Taken ?Type buprenorphine 2 mg-naloxone 0.5 mg 2 film buccal TID 01/15/20 01/15/20 Unknown History sublingual film (Suboxone) bupropion HCl 100 mg tablet,12 hr 100 mg PO DAILY 01/15/20 01/15/20 Unknown History sustained-release (Wellbutrin SR) quetiapine 100 mg tablet (Seroquel) 100 mg PO HS 01/15/20 01/15/20 Unknown History quetiapine 25 mg tablet (Seroquel) 25 mg PO BID 01/15/20 01/15/20 Unknown History Allergies Allergy/AdvReac Type Severity Reaction Status Date / Time No Known Allergies Allergy Verified 01/20/25 14:08 Review of Systems 2 Review of Systems: All systems reviewed & are unremarkable except as noted in HPI and below PMFSH Past Medical History Medical History Bipolar 1 disorder Social History Social History Substance use: current Substance use type: heroin, opiates and methamphetamine Gender identity (if verbalized by the patient): Male Exam 2 Narrative: GENERAL: Well appearing, well-nourished, non-toxic, in no acute distress. HEAD: Normocephalic, atraumatic. NECK: Supple. No adenopathy, no masses. RESPIRATORY: Airway patent, respirations nonlabored. Clear to auscultation bilaterally, no rales, rhonchi, wheezing. CARDIOVASCULAR: Regular rate and rhythm without murmurs, rubs, or gallops. Peripheral pulses 2+ and equal bilaterally. ABDOMINAL: Soft, nontender, nondistended, no hepatosplenomegaly. Normoactive BS. MUSCULOSKELETAL: Moves all extremities. Strength/ROM intact without gross deformities. SKIN: Warm, dry, normal color. + contact dermatitis bilateral forearms NEURO: A&O X3. Speech clear. Cranial nerves II-XII intact. No ataxic movements. PSYCHIATRIC: Appropriate mood and affect. Normal interaction. Course Vital Signs Vital signs: Vital Signs Temperature 36.6 C 01/20/25 14:03 Pulse Rate 71 01/20/25 14:03 Respiratory Rate 18 01/20/25 14:03 Blood Pressure 140/79 01/20/25 14:03 Pulse Oximetry 99 01/20/25 14:03 Oxygen Delivery Room Air 01/20/25 14:03 Temperature 36.6 C 01/20/25 14:03 Pulse Rate 80 01/20/25 15:02 Respiratory Rate 18 01/20/25 15:02 Blood Pressure 119/81 01/20/25 15:02 Pulse Oximetry 100 01/20/25 15:02 Oxygen Delivery Room Air 01/20/25 14:03 Medical Decision Making MDM Narrative Medical decision making narrative: Patient is a 34-year-old male to the ER with concerns for dehydration. He he has been walking or riding the bus since 1:00 p.m. yesterday. Patient reports in [place] and was trying to make his way to [place]. He reports he started feeling dehydrated and his feet started hurting so he called 911. Patient reports pain is homeless. He reports he has only been urinating every other day. Patient endorses a history of ADHD, bipolar, and opioid disorder. He reports he takes Vyvanse, Seroquel and Suboxone every day. Patient denies any chest pain, shortness of breath, recent fevers, abdominal pain, or urinary symptoms. Labs Ordered: CBC, CMP, UDS, UA, CK Imaging Ordered: None necessary Medications Ordered: 1 L normal saline IV bolus x2, Tylenol 1 g p.o., potassium chloride 40 mEq p.o. Results: Patient's CBC indicates a red blood cell count of 4.53, hemoglobin of 13.5, hematocrit of 40.4%. Her CMP indicates a potassium of 3.2, creatinine is 0.63, glucose of 112, and AST of 69. Patient's CK was 1105. His urinalysis indicates 2+ ketones. Patient's UDS was positive for amphetamines and cocaine. Diagnosis: Dehydration, hypokalemia Patient Education/Shared MDM: Results of lab work shared with patient. He endorses improvement of dehydration symptoms following IV bolus administration. Patient strongly advised to maintain hydration status upon discharge and follow- up with his PCP as soon as possible. He will be discharged home with a prescription for hydrocortisone cream due to a rash on both of his forearms. Strict return precautions provided. Patient verbalized understanding and is in agreement with plan. Vital signs stable at time of discharge. All questions answered. Vital Signs Vital Signs: Vital Signs Temperature 36.6 C 01/20/25 14:03 Pulse Rate 71 01/20/25 14:03 Respiratory Rate 18 01/20/25 14:03 Blood Pressure 140/79 01/20/25 14:03 Pulse Oximetry 99 01/20/25 14:03 Oxygen Delivery Room Air 01/20/25 14:03 Temperature 36.6 C 01/20/25 14:03 Pulse Rate 80 01/20/25 15:02 Respiratory Rate 18 01/20/25 15:02 Blood Pressure 119/81 01/20/25 15:02 Pulse Oximetry 100 01/20/25 15:02 Oxygen Delivery Room Air 01/20/25 14:03 Lab Data Lab results reviewed: Yes I reviewed the patient's lab results. 01/20/25 14:48 01/20/25 14:48 Labs: Lab Results 01/20/25 01/20/25 Range/Units 14:48 16:03 WBC 9.0 (4.5-10.0) K/mm3 RBC 4.53 L (4.6-6.20) M/mm3 Hgb 13.5 L (14.0-18.0) g/dL Hct 40.4 L (42.0-52.0) % MCV 89.2 (80-100) fl MCH 29.8 (26-34) pg MCHC 33.4 (32-36) g/dl RDW 12.4 (11.5-14.5) % Plt Count 184 (150-375) k/mm3 MPV 11.6 H (7.4-10.4) fl Immature Gran % (Auto) 0.3 (0-0.5) % Neut % (Auto) 64.6 (45.5-73.1) % Lymph % (Auto) 19.5 (18.3-44.2) % [place] % (Auto) 9.4 H (2.6-8.5) % Eos % (Auto) 5.9 H (0-4.4) % Baso % (Auto) 0.3 (0.2-1.2) % Lymph # (Auto) 1.76 (0.9-3.2) K/mm3 [place] # (Auto) 0.9 H (0.1-0.6) K/mm3 Eos # (Auto) 0.5 H (0-0.3) K/mm3 Baso # (Auto) 0.0 (0.0-0.1) K/mm3 Abs Immat Gran (auto) 0.03 (0.00-0.031) K/mm3 Absolute Neuts (auto) 5.8 (1.3-6.7) K/mm3 Absolute Nucleated RBC 0.000 (0.0-0.012) K/mm3 Nucleated RBC % 0.0 (0.0-0.2) % Sodium 138 (137-145) mmol/L Potassium 3.2 L (3.4-5.0) mmol/L Chloride 104 (98-107) mmol/L Carbon Dioxide 26 (22-30) mmol/L Anion Gap 8 (4-12) mmol/L BUN 20 (9-20) mg/dL Creatinine 0.63 L (0.7-1.3) mg/dL Estim Creat Clear Calc 167 ml/min Estimated GFR > 60 (59 - ) Glucose 112 H (65-110) mg/dL Calcium 8.5 (8.4-10.2) mg/dL Total Bilirubin 0.7 (0.2-1.3) mg/dL AST 69 H (17-59) U/L ALT 40 (6-50) U/L Alkaline Phosphatase 90 (38-126) U/L Total Creatine Kinase 1105 H (55-170) U/L Total Protein 6.8 (6.3-8.2) g/dL Albumin 4.1 (3.5-5.1) g/dL Urine Color Yellow (Yellow) Urine Appearance Clear (Clear) Urine pH 5.5 (5.0-9.0) Ur Specific [place] 1.027 (1.001-1.035) Urine Protein Negative (Negative) mg/dL Urine Glucose (UA) Negative (Negative) mg/dL Urine Ketones 2+ H (Negative) mg/dL Ur Blood (Man) Negative (Negative) Urine Nitrate Negative (Negative) Urine Bilirubin Negative (Negative) Urine Urobilinogen 1.0 (<2.0) mg/dL Leukocyte Esterase Rfl Negative (Negative) TARIK/UL Urine Opiates Screen Negative (Negative) Urine Methadone Screen Negative (Negative) Ur Barbiturates Screen Negative (Negative) Ur Phencyclidine Scrn Negative (Negative) Ur Amphetamine Screen Positive A (Negative) U Benzodiazepines Scrn Negative (Negative) Urine Cocaine Screen Positive A (Negative) U Cannabinoids Screen Negative (Negative) Discharge Plan Discharge Clinical Impression: Dehydration after exertion, Hypokalemia Patient Disposition: Home Condition: Stable Instructions: Antibiotic Form Additional Instructions: Please return to the ER with any worsening symptoms. Follow-up with primary care provider as soon as possible, as your potassium was a little low today. Take all medications as prescribed, including regularly scheduled medications. Please remember to drink lots of water. Patient Language: Colombian Prescriptions: New hydrocortisone 2.5 % lotion 1 applic topical TID PRN (Reason: itching) Qty: 59 0RF No Action quetiapine [Seroquel] 25 mg Tablet 25 mg PO BID quetiapine [Seroquel] 100 mg Tablet 100 mg PO HS bupropion HCl [Wellbutrin SR] 100 mg Tablet Sustained-Release 12 Hr 100 mg PO DAILY buprenorphine-naloxone [Suboxone] 2-0.5 mg Film 2 film BUCCAL TID ibuprofen 800 mg tablet 800 mg PO TID PRN (Reason: pain) Qty: 20 0RF Follow-up/Referrals: Arnoldo White MD [Physician] - (primary care provider) UNKNOWN,DOCTOR [Primary Care Provider] - Time of Disposition: 18:50
[2025-01-20 14:54] LABS: Basophils Percent Auto 0.3 % (0.2-1.2); Eosinophils Absolute Auto 0.5 K/mm3 (0-0.3); Eosinophils Percent Auto 5.9 % (0-4.4); Hematocrit 40.4 % (42.0-52.0); Hemoglobin 13.5 g/dL (14.0-18.0); Immature Granulocyte Absolute 0.03 K/mm3 (0.00-0.031); Immature Granulocyte Percent A 0.3 % (0-0.5); Lymphocytes Absolute Auto 1.76 K/mm3 (0.9-3.2); Lymphocytes Percent Auto 19.5 % (18.3-44.2); Mean Corpuscular HGB Conc 33.4 g/dl (32-36); Mean Corpuscular Hemoglobin 29.8 pg (26-34); Mean Corpuscular Volume 89.2 fl (80-100); Mean Platelet Volume 11.6 fl (7.4-10.4); Monocytes Absolute Auto 0.9 K/mm3 (0.1-0.6); Monocytes Percent Auto 9.4 % (2.6-8.5); Neutrophils Absolute Auto 5.8 K/mm3 (1.3-6.7); Neutrophils Percent Auto 64.6 % (45.5-73.1); Platelet Count Result 184 k/mm3 (150-375); Red Blood Count 4.53 M/mm3 (4.6-6.20); Red Cell Distribution Width 12.4 % (11.5-14.5)
[2025-01-20] MEDS: ACETAMINOPHEN 500 MG TABLET 1000 MG PO (15:01)
[2025-01-20 15:02] VITALS: BP 119/81; PULSE 80; RESP 18; O2SAT 100
[2025-01-20] MEDS: SODIUM CHLORIDE 0.9% IV 1,000 ML 999 ML IV CONT ×2 (15:02→17:17)
[2025-01-20 15:08] LABS: Albumin Level 4.1 g/dL (3.5-5.1); Alkaline Phosphatase 90 U/L (38-126); Anion Gap 8 mmol/L (4-12); Bilirubin,Total 0.7 mg/dL (0.2-1.3); Blood Urea Nitrogen 20 mg/dL (9-20); Calcium 8.5 mg/dL (8.4-10.2); Carbon Dioxide 26 mmol/L (22-30); Chloride 104 mmol/L (98-107); Creatine Kinase 1105 U/L (55-170); Estimated CRCL calculation 167 ml/min; Estimated Glomerular Filt Rate > 60; Glucose 112 mg/dL (65-110); Potassium 3.2 mmol/L (3.4-5.0); Sodium 138 mmol/L (137-145); Total Protein 6.8 g/dL (6.3-8.2)
[2025-01-20] MEDS: POTASSIUM CHLORIDE 20 MEQ ER TABLET 40 MEQ PO (15:50)
[2025-01-20 16:10] LABS: Add Urine Microscopic? NO; Appearance Urine Clear (Clear); Bilirubin Urine Negative (Negative); Blood Urine Negative (Negative); Color Urine Yellow (Yellow); Glucose Urine UA Negative (Negative); Ketones Urine 2+ mg/dL (Negative); Leukocyte Esterase Ur Negative LEU/UL (Negative); Nitrate Urine Negative (Negative); Protein Urine Negative (Negative); Specific Grav Ur 1.027 (1.001-1.035); pH Urine 5.5 (5.0-9.0)
[2025-01-20 16:16] LABS: Alanine Aminotransferase 40 U/L (6-50); Aspartate Amino Transferase 69 U/L (17-59)
[2025-01-20 16:28] LABS: Amphetamine Screen Urine Positive (Negative); Barbiturate Screen Urine Negative (Negative); Benzodiazepines Screen Urine Negative (Negative); Cannabinoid Screen Urine Negative (Negative); Cocaine Screen Urine Positive (Negative); Methadone Screen Urine Negative (Negative); Opiate Screen Urine Negative (Negative); Phencyclidine Screen Urine Negative (Negative)
[2025-01-20 18:50] VITALS: BP 156/79; PULSE 95; RESP 19; O2SAT 97
== END 2025-01-20 19:13 | disposition home or self-care (01) ==
PROVIDERS: Emergency Provider Registered Nurse
DX: E86.0 Dehydration (principal); E87.6 Hypokalemia; F90.9 Attention-deficit hyperactivity disorder, unspecified type; F31.9 Bipolar disorder, unspecified; Z79.899 Other long term (current) drug therapy
CPT/HCPCS: 36415; 80053; 80307; 81003; 82550; 85025; 96360; 96361; 99283; A9270; J7030

== ENCOUNTER 2025-07-20 23:34 | Emergency (ER) | payer BC, OTHER, SELFPAY ==
--- OUTSIDE RECORDS SUMMARY | 2025-01-30 03:45 | XMS_ITS ---
Author Organization [facility] Address Critical access hospital1 [facility] [address] [place] [address] Care Team Providers Care Net Mvc Developer Name Role Phone Viviana Washington Primary Care Provider REASON FOR VISIT [facility] [place] 1 mo fu med management Social History Sex Assigned At : Social History Observation Description Sex Assigned At Male Encounters Encounter Location Date Provider Diagnosis [facility] [address] [facility] [address] [place] [address] 01/30/2025 Viviana Washington Plan Of Treatment No Information Progress Notes * Gómez AUGUST ADOB:1990 (35 yo M)Acc No.[id number]:01/30/2025 UNLOCKED PROGRESS NOTE Patient: Thomas misaelmattGómez Provider: JOSIAH Perez :1990 A ge:34 Y S ex:Male Date:01/30/2025 Address:[address] [facility] Subjective: * Chief Complaints: * E [facility] [place] [facility] home provider [place] 1 mo fu med management * Active Problem List Z13.89 Special screening fo r other specified conditions Modified On:02/01/2022W/U Status:confirmed Z79.899 Encounter for long-t erm (current) drug use Modified On:02/16/2022W/U Status:confirmed F90.9 ADHD Modified On:12/23/2022/U Status:confirmed F32.9 Depression Modified On:12/23/2022/U Status:confirmed F41.9 Anxiety Modified On:12/23/2022/U Status:confirmed G47.00 Insomnia Modified On:11/22/2022 Status:confirmed * Electronic signature of JOSIAH Tiwari on 07/21/2025 at 12:23 AM OVEN TECHNICIAN Sign off status: Pending Visit Status: P rovCx (Provider Cancel/Reschedule) * Provider: JOSIAH Perez Date: 0 01/30/2025 Generated for Marcy bennett/Romain/Everardoitting on: 1 09/21/2024 12:23 AM OVEN TECHNICIAN
--- OUTSIDE RECORDS SUMMARY | 2025-06-19 09:20 | XMS_ITS ---
Author Organization [facility] Address [address] [facility] [address] [place] [address] Care Team Providers Care City Supervisor Name Role Phone Onealmagalis Viviana Primary Care Provider [phone] REASON FOR VISIT 1 month med refills Social History Sex Assigned At : Social History Observation Description Sex Assigned At Male Encounters Encounter Location Date Provider Diagnosis [facility] [address] [facility] [address] [place] [address] 06/19/2025 Viviana Washington Assessments Encounter Date Diagnosis (ICD Code) Assessment Notes Treatment Notes Treatment Clinical Notes Section Notes 06/19/2025 Other Medication education and side effects discussed. Emergency services were discussed with patient. Instructed patient to go to ER if having suicidal thoughts. Plan Of Treatment Treatment Notes Assessment Notes Other Medication education and side effects discussed. Emergency services were discussed with patient. Instructed patient to go to ER if having suicidal thoughts. History and Physical Notes * Examination Category Sub-Category Detail Notes Category Not es General Examination GENERAL APPEARANCE: normal, alert, in no acute distress. Appropriately dressed and groomed. NEUROLOGIC: cerebellar function normal, cognitive exam grossly normal, cooperative with exam, gait normal, no rigidity, no tremors PSYCH: alert, oriented, cog nitive function intact, cooperative with exam, good eye contact, judgement and insight good, mood/affect full range, no auditory or visual hallucinations, speech clear, thought content without suicidal ideation, delusions, thought process logical, goal directed Progress Notes * Gómez AUGUST ADOB:1990 (35 yo M)Acc No.[id number]:06/19/2025 UNLOCKED PROGRESS NOTE Patient: Gómez Terry Provider: JOSIAH Perez :1990 A ge:35 Y S ex:Male Date:06/19/2025 [facility] [facility] Subjective: * Chief Complaints: * 1 month med refills * ROS: G eneral/Constitutional: Chills d enies. F atigue d enies. F ever d enies. E ndocrine: Cold intolerance d enies. E xcessive thirst d enies. H eat intolerance d enies. R espiratory: Chest pain d enies. C ough d enies. S hortness of breath d enies. C ardiovascular: Chest pain d enies. D izziness d enies. S hortness of breath d enies. G astrointestinal: Decreased appetite d enies. N ausea d enies. ? N eurologic: Balance difficulty d enies. G ait abnormality d enies. T ingling/Numbness d enies. P sychiatric: Anxiety d enies. A uditory/visual hallucinations d enies. D elusions d enies. D epressed mood d enies. D ifficulty sleeping d enies. E ating disorder d enies. L oss of appetite d enies. S uicidal thoughts?denies. * Active Problem List Z13.89 Special screening fo r other specified conditions Modified On:02/01/2022/U Status:confirmed Z79.899 Encounter for long-t erm (current) drug use Modified On:02/16/2022U Status:confirmed F90.9 ADHD Modified On:12/23/2022U Status:confirmed F32.9 Depression Modified On:12/23/2022U Status:confirmed F41.9 Anxiety Modified On:12/23/2022 Status:confirmed G47.00 Insomnia Modified On:11/22/2022 Status:confirmed Objective: * Examination: G eneral Examination: GENERAL APPEARANCE: n ormal, alert, in no acute distress. Appropriately dressed and groomed.. NEUROLOGIC: c erebellar function normal, cognitive exam grossly normal, cooperative with exam, g ait normal, no rigidity, no tremors. PSYCH: a lert, oriented, cognitive function intact, cooperative with exam, good eye contact, judgement and insight good, mood/affect full range, no auditory or visual hallucinations, speech clear, thought content without suicidal ideation, delusions, thought process logical, goal directed. Plan: * Treatment: * Electronic signature of JOSIAH Tiwari on 07/21/2025 at 12:21 AM LIFTER Sign off status: Pending Visit Status: C NCLSMS (Voice) * Provider: JOSIAH Perez Date: 08/19/2024 Generated for Marcy bennett/Romain/Coral on: 09/21/2024 12:21 AM LIFTER
--- OUTSIDE RECORDS SUMMARY | 2025-07-15 05:20 | XMS_ITS ---
Author Organization [facility] Address [address] [facility] [address] [place] [address] Care Team Providers Care Batch Operator Name Role Phone Onealmagalis Viviana Primary Care Provider [phone] REASON FOR VISIT 1 month med refills Social History Sex Assigned At : Social History Observation Description Sex Assigned At Male Encounters Encounter Location Date Provider Diagnosis [facility] [address] [facility] [address] [place] [address] 07/15/2025 Viviana Washington Assessments Encounter Date Diagnosis (ICD Code) Assessment Notes Treatment Notes Treatment Clinical Notes Section Notes 07/15/2025 Other Medication education and side effects discussed. [...] * Gómez AUGUST ADOB:1990 (35 yo M)Acc No.[id number]:07/15/2025 UNLOCKED PROGRESS NOTE Patient: Gómez Terry Provider: JOSIAH Perez :1990 A ge:35 Y S ex:Male Date:07/15/2025 [address] [facility] Subjective: * Chief Complaints: * [...] signature of JOSIAH Tiwari on 07/21/2025 at 12:24 AM BANDOLEER STRAIGHTENER STAMPER Sign off status: Pending Visit Status: N /S (No-Show) * Provider: JOSIAH Perez Date: 09/15/2024 Generated for Marcy bennett/Romain/Coral on: 09/21/2024 12:24 AM BANDOLEER STRAIGHTENER STAMPER
[2025-07-20 23:44] VITALS: BP 153/99; PULSE 92; RESP 18; TEMP 37.1; O2SAT 100
[2025-07-21 00:17] LABS: Hematocrit 42.1 % (42.0-52.0); Hemoglobin 14.0 g/dL (14.0-18.0); Immature Granulocyte Percent A 0.5 % (0-0.5); Lymphocytes Absolute Auto 1.74 K/mm3 (0.9-3.2); Mean Corpuscular HGB Conc 33.3 g/dl (32-36); Mean Corpuscular Hemoglobin 30.6 pg (26-34); Mean Corpuscular Volume 92.1 fl (80-100); Nucleated Red Blood Cells Absolute Auto 0.000 K/mm3 (0.0-0.012); Nucleated Red Blood Cells Perc 0.0 % (0.0-0.2); Platelet Count Result 216 k/mm3 (150-375); Red Blood Count 4.57 M/mm3 (4.6-6.20); White Blood Count 9.6 K/mm3 (4.5-10.0)
--- NOTE | 2025-07-21 00:17 | ED.PSYCH ---
HPI - Psych General Chief Complaint: Psychiatric Symptoms Stated Complaint: psych symptoms, meth use Time Seen by Provider: 07/20/25 23:50 History of Present Illness HPI Narrative: 35-year-old male with a history of polysubstance abuse including opiates and methamphetamines. History of ADHD and bipolar disorder. Does not know if he has schizophrenia. Presents to the emergency department today with recurrent episodes of visual and auditory hallucinations. He states that he has had symptoms since February intermittently. Worsening over last 4 days. Did admit to relapsing use of fentanyl and methamphetamine most recently yesterday. States he has visual and auditory symptoms even when not on drugs. Denies any suicidality or homicidality. Does not feel like he wants to harm himself or his hallucinations are telling him to harm himself. He describes hallucinations of seeing demons and odd shapes and shadows in various locations. talking to him and making noises. No command hallucination. Does endorse paranoia. Denies any systemic complaints such as fever, chills, headache, nausea, vomiting, chest pain, abdominal pain, back pain. Ambulatory without any difficulty. Presents via EMS. Has been seen outpatient for drug rehab but continues to use. Denies any other use besides meth yesterday and fentanyl 4 days ago. Related Data Home Medications ?Medication ?Instructions ?Recorded ?Confirmed ?Last Taken ?Type buprenorphine 2 mg-naloxone 0.5 mg 2 film buccal TID 01/15/20 07/20/25 Unknown History sublingual film (Suboxone) bupropion HCl 100 mg tablet,12 hr 100 mg PO DAILY 01/15/20 01/15/20 Unknown History sustained-release (Wellbutrin SR) quetiapine 100 mg tablet (Seroquel) 100 mg PO HS 01/15/20 07/20/25 Unknown History quetiapine 25 mg tablet (Seroquel) 25 mg PO BID 01/15/20 01/15/20 Unknown History lisdexamfetamine 60 mg capsule mg 07/20/25 Unknown History (Vyvanse) Allergies Allergy/AdvReac Type Severity Reaction Status Date / Time No Known Allergies Allergy Verified 07/21/25 09:36 Review of Systems Review of Systems: As reviewed above in HPI All systems reviewed & are unremarkable except as noted in HPI and below PMFSH Past Medical History Medical History Bipolar 1 disorder Social History Social History Substance use: current Substance use type: methamphetamine and unknown Gender identity (if verbalized by the patient): Male Exam Narrative: GENERAL: [Well-appearing, well-nourished, and in no acute distress.] HEAD: [Normocephalic, atraumatic.] EYES: [PERRLA and EOMI.] ENT: Nares clear, no rhinorrhea or epistaxis. Mucous membranes moist. NECK: Supple. CHEST: [Clear to auscultation. No respiratory distress.] HEART: [Regular rate and rhythm]. No murmur heard. [Normal peripheral pulses.] ABDOMEN: [Soft, nondistended], [nontender], [No rigidity or guarding] EXTREMITIES: Normal range of motion. [No edema.] SKIN: Warm, dry, no rash. NEURO: [No focal deficits]. Alert and oriented [x3.] PSYCH: endorses auditory and visual hallucinations. Denies SI or HI. Endorses persecutory/paranoid delusions. Course Vital Signs Vital signs: Vital Signs Temperature 37.1 C 07/20/25 23:44 Pulse Rate 92 07/20/25 23:44 Respiratory Rate 18 07/20/25 23:44 Blood Pressure 153/99 H 07/20/25 23:44 Pulse Oximetry 100 07/20/25 23:44 Oxygen Delivery Room Air 07/20/25 23:44 Temperature 37.1 C 07/20/25 23:44 Pulse Rate 92 07/20/25 23:44 Respiratory Rate 18 07/20/25 23:44 Blood Pressure 153/99 H 07/20/25 23:44 Pulse Oximetry 100 07/20/25 23:44 Oxygen Delivery Room Air 07/20/25 23:44 MDM MDM Narrative Medical decision making narrative: 35-year-old male with a history of polysubstance abuse including opiates and methamphetamines. History of ADHD and bipolar disorder. Does not know if he has schizophrenia. Presents to the emergency department today with recurrent episodes of visual and auditory hallucinations. He states that he has had symptoms since February intermittently. Worsening over last 4 days. Did admit to relapsing use of fentanyl and methamphetamine most recently yesterday. States he has visual and auditory symptoms even when not on drugs. Denies any suicidality or homicidality. Does not feel like he wants to harm himself or his hallucinations are telling him to harm himself. He describes hallucinations of seeing demons and odd shapes and shadows in various locations. talking to him and making noises. No command hallucination. Does endorse paranoia. Denies any systemic complaints such as fever, chills, headache, nausea, vomiting, chest pain, abdominal pain, back pain. Ambulatory without any difficulty. Presents via EMS. Has been seen outpatient for drug rehab but continues to use. Denies any other use besides meth yesterday and fentanyl 4 days ago. Patient aside from mild hypertension as normal vital signs. Unremarkable physical examination besides his psychiatric complaints including auditory/visual /paranoid delusions and hallucinations. States that he has the symptoms even when not using drugs. High suspicion of drug-induced hallucinosis versus schizophrenia versus other potential psychiatric condition. Does have a history of bipolar disease. Psychiatric medical laboratory studies were ordered clearance for crisis team to evaluate him afterwards. He has no somatic complaints and overall in good health. Labs unremarkable. Patient medically cleared for psychiatric evaluation and final disposition per their recommendations. Patient has been evaluated by crisis and willing to go to inpatient Psychiatry voluntarily. Faxed several locations. Awaiting accepting facility. Prior to getting accepted at another facility I was informed by nursing staff that patient had left the building and walked out/eloped at this time. Security notified but patient is voluntary and not a harm to himself or others at this time can be let go if he left. Differential Diagnosis Differential Diagnosis: Drug-induced psychosis, schizophrenia, bipolar disorder, malingering Lab Data [facility] Lab Attestation statement: I personally reviewed the patient's lab results. 07/21/25 00:04 07/21/25 00:04 Labs: Lab Results 07/20/25 07/21/25 Range/Units 23:53 00:04 WBC 9.6 (4.5-10.0) K/mm3 RBC 4.57 L (4.6-6.20) M/mm3 Hgb 14.0 (14.0-18.0) g/dL Hct 42.1 (42.0-52.0) % MCV 92.1 (80-100) fl MCH 30.6 (26-34) pg MCHC 33.3 (32-36) g/dl RDW 12.2 (11.5-14.5) % Plt Count 216 (150-375) k/mm3 MPV 11.2 H (7.4-10.4) fl Immature Gran % (Auto) 0.5 (0-0.5) % Neut % (Auto) 74.3 H (45.5-73.1) % Lymph % (Auto) 18.2 L (18.3-44.2) % [place] % (Auto) 6.0 (2.6-8.5) % Eos % (Auto) 0.7 (0-4.4) % Baso % (Auto) 0.3 (0.2-1.2) % Lymph # (Auto) 1.74 (0.9-3.2) K/mm3 [place] # (Auto) 0.6 (0.1-0.6) K/mm3 Eos # (Auto) 0.1 (0-0.3) K/mm3 Baso # (Auto) 0.0 (0.0-0.1) K/mm3 Abs Immat Gran (auto) 0.05 H (0.00-0.031) K/mm3 Absolute Neuts (auto) 7.1 H (1.3-6.7) K/mm3 Absolute Nucleated RBC 0.000 (0.0-0.012) K/mm3 Nucleated RBC % 0.0 (0.0-0.2) % Sodium 141 (137-145) mmol/L Potassium 3.6 (3.4-5.0) mmol/L Chloride 100 (98-107) mmol/L Carbon Dioxide 33 H (22-30) mmol/L Anion Gap 8 (4-12) mmol/L BUN 23 H (9-20) mg/dL Creatinine 0.78 (0.7-1.3) mg/dL Estim Creat Clear Calc 128 ml/min Estimated GFR > 60 (59 - ) Glucose 104 (65-110) mg/dL Calcium 9.5 (8.4-10.2) mg/dL Total Bilirubin 0.7 (0.2-1.3) mg/dL AST 29 (17-59) U/L ALT 22 (6-50) U/L Alkaline Phosphatase 83 (38-126) U/L Total Protein 8.3 H (6.3-8.2) g/dL Albumin 4.8 (3.5-5.1) g/dL TSH (Reflex) 1.640 (0.465-4.68) uIU/mL Urine Color Yellow (Yellow) Urine Appearance Clear (Clear) Urine pH 7.0 (5.0-9.0) Ur Specific [place] 1.022 (1.001-1.035) Urine Protein Trace (Negative) mg/dL Urine Glucose (UA) Negative (Negative) mg/dL Urine Ketones Trace H (Negative) mg/dL Ur Blood (Man) Negative (Negative) Urine Nitrate Negative (Negative) Urine Bilirubin Negative (Negative) Urine Urobilinogen 1.0 (<2.0) mg/dL Leukocyte Esterase Rfl Negative (Negative) TARIK/UL Urine RBC 0-2 (0-2) /hpf Urine WBC 0-5 (0-3) /hpf Ur Squamous Epith Cells None seen (Few) /hpf Urine Bacteria None seen /hpf Urine Casts 3-5 Urine Opiates Screen Negative (Negative) Urine Methadone Screen Positive A (Negative) Ur Barbiturates Screen Negative (Negative) Ur Phencyclidine Scrn Negative (Negative) Ur Amphetamine Screen Positive A (Negative) U Benzodiazepines Scrn Negative (Negative) Urine Cocaine Screen Negative (Negative) U Cannabinoids Screen Negative (Negative) Ethyl Alcohol < 10 (<10) mg/dL Influenza A (RT-PCR) Negative (Negative) Influenza B (RT-PCR) Negative (Negative) RSV (RT-PCR) Negative (Negative) SARS-CoV-2 RNA (RT-PCR) Negative (Negative) Discharge Plan Discharge Clinical Impression: Hallucinations, Methamphetamine abuse Patient Disposition: Elopement After Seen by Prov Patient Language: Wallisian Prescriptions: No Action quetiapine [Seroquel] 25 mg Tablet 25 mg PO BID quetiapine [Seroquel] 100 mg Tablet 100 mg PO HS bupropion HCl [Wellbutrin SR] 100 mg Tablet Sustained-Release 12 Hr 100 mg PO DAILY buprenorphine-naloxone [Suboxone] 2-0.5 mg Film 2 film BUCCAL TID ibuprofen 800 mg tablet 800 mg PO TID PRN (Reason: pain) Qty: 20 0RF hydrocortisone 2.5 % lotion 1 applic topical TID PRN (Reason: itching) Qty: 59 0RF lisdexamfetamine [Vyvanse] 60 mg capsule Follow-up/Referrals: UNKNOWN,DOCTOR [Non-Staff] Time of Disposition: 06:58
[2025-07-21 00:21] LABS: Alanine Aminotransferase 22 U/L (6-50); Albumin Level 4.8 g/dL (3.5-5.1); Alkaline Phosphatase 83 U/L (38-126); Anion Gap 8 mmol/L (4-12); Aspartate Amino Transferase 29 U/L (17-59); Bilirubin,Total 0.7 mg/dL (0.2-1.3); Blood Urea Nitrogen 23 mg/dL (9-20); Calcium 9.5 mg/dL (8.4-10.2); Carbon Dioxide 33 mmol/L (22-30); Chloride 100 mmol/L (98-107); Estimated CRCL calculation 128 ml/min; Estimated Glomerular Filt Rate > 60; Glucose 104 mg/dL (65-110); Potassium 3.6 mmol/L (3.4-5.0); Sodium 141 mmol/L (137-145); Total Protein 8.3 g/dL (6.3-8.2)
[2025-07-21 00:24] LABS: Add Urine Microscopic? YES; Appearance Urine Clear (Clear); Glucose Urine UA Negative (Negative); Leukocyte Esterase Ur Negative LEU/UL (Negative); Nitrate Urine Negative (Negative); Specific Grav Ur 1.022 (1.001-1.035)
--- OUTSIDE RECORDS SUMMARY | 2025-07-21 00:24 | XMS_ITS | Clinical Summary ---
Author Organization [facility] Address [address] [place] [address] [place] [address] Care Team Providers Care Director Of Reservations Name Role Phone Unavailable Primary Care Provider Unavailabl e Medications lisdexamfetamin e (Vyvanse) 60 mg capsule Take 1 Capsule (60 mg) by mouth daily in the morning. Max Daily Amount: 60 mg 30 Capsule 09/12/2023 5:13 PM FILLER BLENDER 09/12/2023 Active lisdexamfetamin e (Vyvanse) 60 mg capsule Take 1 Capsule (60 mg) by mouth daily in the morning. Max Daily Amount: 60 mg 30 Capsule 01/31/2024 5:05 PM CDT 01/31/2024 Active Social History Tobacco Use Types Packs/Day Years Used Date Smoking Tobacco: Never Assessed Sex and Gender Information Value Date Recorded Sex Assigned at Male 08/15/2023 9:45 AM FILLER BLENDER Legal Sex Male 9:21 AM FILLER BLENDER Gender Identity Male 08/15/2023 9:45 AM FILLER BLENDER Sexual Orientation Straight 08/15/2023 9: 45 AM FILLER BLENDER Plan of Treatment Health Maintenance Due Date Last Done Comments DTAP/TDAP/TD VACCINES (1 - Tdap) 2011 HEPATITIS B VACCINES (1 of 3 - 19+ 3-dose series) 10/2010 INFLUENZA VACCINE (#1) 2025 HPV VACCINES (No Doses Required) Completed Insurance [employer] Commercial
--- OUTSIDE RECORDS SUMMARY | 2025-07-21 00:24 | XMS_ITS | Patient Health Record ---
Author Organization [facility] Address [address] [place] [address] Phone [phone] Care Team Providers Care Busboy Name Role Phone Cherise SAHA, Juan J Primary Care Provider Reason For Referral No Information Medications Medication SIG (Take, Route, Frequency, Duration) Notes Start Date End Date Diagnosis (ICD Code) Status SEROquel 100 MG Tablet 1 tablet at bedtime Orally Once a day; Duration: 30 day(s) Opioid use disorder (ICD_10 - F11.99) Active Suboxone 2-0.5 MG Film 1 film under the tongue and allow to dissolve Sublingual three times a day; Duration: 7 days Opioid use disorder (ICD_10 - F11.99) Active Seroquel 25 MG Tablet 1 tablet Orally twice a day; Duration: 30 days Opioid use disorder (ICD_10 - F11.99) Active buPROPion HCl 200 MG Tablet Extended Release as directed Orally once daily; Duration: 30 days Opioid use disorder (ICD_10 - F11.99) Active Suboxone 2-0.5 MG Film 1 film under the tongue and allow to dissolve Sublingual three times daily Active Social History Tobacco Use: Social History Observation Description Date Details (start date - stop date) Current Smoker NA - NA Sex Observation Social History Observation Description Sex Observation Male Sexual Orientation Social History Observation Description Sexual Orientation Straight or heterose xual Gender Identity Social History Observation Description Gender Identity Male SDOH Assessments Date Tool Assessment Assessment LOINC Value Assessment Notes Goals Interventions 02/26/20 20 NARENDRA (LOINC: 72883-2) Total Score: 11 Date Completed/Upda rachel: 01/20/20 19 What is your current housing situation? 32114-7 I do not have housing (staying with others, in a hotel, in a fdc, living outside on the street, on a beach, or in a park) (JJ54737-6) Are you worried about losing your housing? 08217-5 No (LA32-8) What is the highest level of school that you have finished? 73851-5 Less than a high school degree (BP12038-7) What is your current work situation? 91803-2 Unemployed and seeking work (FH09992-1) In the past year, have you o r any family members you live with been unable to get any of the following when it was really needed? Check all that apply 24969-4 Other (please write in notes) (LA46-8) Has lack of transportation k ept you from medical appointments, meetings, work or from getting things needed for daily living? 70926-7 Yes, it has kept me from non-medical meetings, appointments, work, or getting things needed for daily living (ET59362-3) Yes, it has kept me from medical appointments or from getting my medications (YB62342-5) How often do you see or talk to people that you care about and feel close to? (For example: talking to friends on the phone, visiting friends or family, going to faith or club meetings) 17035-2 More than 5 times a week (RB18137-3) How stressed are you? Stress is when someone feels tense, nervous, anxious, or can\t sleep at night because their mind is troubled 59955-0 Quite a bit (FJ92557-3) In the past year have you sp ent more than 2 nights in a row in a [place] facility, shelter, senior living center, or juvenile correctional facility? 44591-3 No (LA32-8) Do you feel physically and emotionally safe where you currently live? 76385-2 Yes (LA33-6) In the past year, have you b een afraid of your partner or ex-partner? 05460-8 No (LA32-8) Are you a refugee? No What country are you from? [place] PRAPARE Score: 11 Social History Social Determinants Social Info Question Answer Notes PRAPARE Date Completed/Updated: 01/19/2019 What is your current housing situation? I do not have housing (staying with others, in a hotel, in a fdc, living outside on the street, on a beach, or in a park) Are you worried about losing your housing? No What is the highest level of school that you have finished? Less than a high school degree What is your current work situation? Unemployed and seeking work In the past year, have you o r any family members you live with been unable to get any of the following when it was really needed? Check all that apply Other (please write in notes) Has lack of transportation k ept you from medical appointments, meetings, work or from getting things needed for daily living? Yes, it has kept me from medical appointments or from getting my medications,Yes, it has kept me from non-medical meetings, appointments, work, or getting things needed for daily living How often do you see or talk to people that you care about and feel close to? (For example: talking to friends on the phone, visiting friends or family, going to faith or club meetings) More than 5 times a week How stressed are you? Stress is when someone feels tense, nervous, anxious, or can\t sleep at night because their mind is troubled Quite a bit In the past year have you sp ent more than 2 nights in a row in a [place], shelter, senior living center, or juvenile correctional facility? No Are you a refugee? No What country are you from? [place] Do you feel physically and e motionally safe where you currently live? Yes In the past year, have you b een afraid of your partner or ex-partner? No PRAPARE Score: 11 Miscellaneous Social Info Question Answer Notes Method of learning: Preferred method of learning: Reading,Discussion,Demonstra tion Primary Social History Social Info Question Answer Notes Living Arrangement Living Arrangement: Dependent Cristianecheryl delgado Is this a supportive environment? Yes Employment Status Employment Status: Unemployed Illicit Substance Usage Illicit Substance Usage: Yes Substance Used: Heroin Drugs/Alcohol: Social Info Question Answer Notes Alcohol Screen (Audit-C) Did you have a drink containing alcohol in the past year? No Social History Social Info Question Answer Notes Drugs/Alcohol: Have you used drugs other than those for medical reasons in the past 12 months? No Tobacco Use: Social Info Question Answer Notes Dont use, Tobacco Use/Smoking Are you a current smo ker How often do you smoke cigarettes? every day How many cigarettes a day do you smoke? 11-20 How soon after you wake up do you smoke your first cigarette? 6-30 minutes Are you interested in quitting? Not ready to quit Additional Details Category Social Info Options Details Miscellaneous Domestic violence: No Living with: Mother Section Notes: Problems Problem Type SNOMED Code ICD Code Dates Problem Status W/U Status Risk Notes Problem Depression (729060293) Depression (F32.9) Added On: 019 Onset Date: 01/25/2019 Active confirmed Problem Opioid use disorder (7353386882) Opioid use disorder (F11.99) Added On: 019 Active confirmed Plan Of Treatment No Information Insurance Providers Payer Name Payer Address Payer Phone Subscriber Number Group Number Insured Name Patient Relationship to Insured Coverage Start Date Coverage End Date [facility] Att Claims Department [address] [place] [address] [id number] Gómez Bhatt Self - patient is the insured 9 Medical (General) History Medical History History ICD Code Opioid use disorder Depression Surgical History Surgery Date(Month/Year) Hospitalization History Reason Date(Month/Year) [facility] in [place] January 2020
[2025-07-21 00:49] LABS: Influenza A QL RT-PCR Negative (Negative); Influenza B QL RT-PCR Negative (Negative); RSV RNA, RT-PCR Negative (Negative); SARS-CoV-2 RNA PCR Negative (Negative)
[2025-07-21 00:54] LABS: Thyroid Stimulating Hormone Reflex 1.640 uIU/mL (0.465-4.68)
[2025-07-21 01:48] LABS: Cannabinoid Screen Urine Negative (Negative)
--- NOTE | 2025-07-21 01:53 | PC.NURSE ---
Patient noted to be having a conversation with a hallucination.
--- NOTE | 2025-07-21 02:03 | PC.NURSE ---
0154 This RN attempted to contact Crisis to have patient evaluated, no answer after line was ringing for 5 minutes. Will attempt to call again.
--- NOTE | 2025-07-21 02:35 | PC.NURSE ---
unable to contact [facility] after multiple tries
--- NOTE | 2025-07-21 03:33 | PC.NURSE ---
Attempted to contact Crisis again, no answer. Will continue to try.
--- NOTE | 2025-07-21 04:01 | PC.NURSE ---
Patient noted to be using a vape in room, ED security removed vape and educated patient on no smoking. Patients belongings removed by ED security and placed in locked cabinet.
--- NOTE | 2025-07-21 04:37 | PC.NURSE ---
Attempted to call Crisis, no answer. Will continue to try.
--- NOTE | 2025-07-21 04:45 | PC.NURSE ---
0442 Adriana with Crisis calls back and states a team will be out to evaluate the patient.
--- NOTE | 2025-07-21 06:57 | PC.NURSE ---
This RN was in another room with a different patient and ED security notifies this RN that the patient had walked out of the EMS bay. Patient had denied any SI/HI throughout his stay in the ED. Patient ambulated out of the ED with a steady gait. Patient did leave his belongings in locked cabinet and security attempted to give them back to the patient but unsuccessful and security handled his belongings. mosquito sprayer and ERP notified.
== END 2025-07-21 07:01 | disposition left against medical advice (07) ==
PROVIDERS: Emergency Provider Student in an Organized Health Care Education/Training Program
DX: R44.1 Visual hallucinations (principal); R44.0 Auditory hallucinations; F15.10 Other stimulant abuse, uncomplicated; F31.9 Bipolar disorder, unspecified; F90.9 Attention-deficit hyperactivity disorder, unspecified type; Z11.52 Encounter for screening for COVID-19; Z79.899 Other long term (current) drug therapy
CPT/HCPCS: 36415; 80053; 80307; 81001; 82077; 84443; 85025; 87637; 99284

== ENCOUNTER 2025-07-21 09:35 | Emergency (ER) | payer BC, OTHER, SELFPAY ==
[2025-07-21 09:43] VITALS: BP 143/93; PULSE 72; RESP 18; TEMP 36.5; O2SAT 100
--- OUTSIDE RECORDS SUMMARY | 2025-07-21 10:07 | XMS_ITS | Patient Health Record ---
Author Organization [facility] Address [address] [address] Care Team Providers Care Hook And Eye Attacher Name Role Phone Viviana Washington Primary Care Provider JoseEvan lombardoh Unavailable [phone] Yasmany Saray Unavailable [phone] Allergies No Known Allergies Reason For Referral No Information Medications Medication SIG (Take, Route, Frequency, Duration) Notes Start Date End Date Status Vyvanse 70 MG Capsule 1 capsule in the morning Orally Once a day; Duration: 30 days 01/30/25 This is an increase # Thirty 06/20/2025 Active Methadone HCl 5 MG Tablet 1 tablet Orally Once a day Active SEROquel 100 MG Tablet 1 tablet at bedtime Orally Once a day; Duration: 30 days Active Social History Tobacco Use: Social History Observation Description Date Details (start date - stop date) Unknown Sex Assigned At : Social History Observation Description Sex Assigned At Male Social History Drugs/Alcohol: Social Info Question Answer Notes Alcohol Screen (Audit-C) Did you have a drink containing alcohol in the past year? No Points 0 Interpretation Negative DAST Total Score: 0 Interpretation: No problems reported Caffeine Intake: 2-3 cups per day Coffee Tobacco Use: Social Info Question Answer Notes Tobacco Control (Standard) Tobacco use: Uses tobacco i n other forms Additional Findings: Tobacco user e-cigarette Tobacco use other than smoking: Are you an other tobac co user? Yes Vaping Problems Problem Type SNOMED Code ICD Code Onset Dates Problem Status W/U Status Risk Notes Problem Depression (378977025) Depression (F32.9) Active confirmed Problem Insomnia (476058423) Insomnia (G47.00) Active confirmed Problem Anxiety (15273635) Anxiety (F41.9) Active confirmed Problem Screening - procedure intent (406996337) Special screening for other specified conditions (Z13.89) Active confirmed Problem Long-term current use of drug therapy (922835915) Encounter for long-term (current) drug use (Z79.899) Active confirmed Problem Attention deficit hyperactivity disorder (597973053) ADHD (F90.9) Active confirmed Vital Signs Height-cm 182.88 cm 05/21/2025 [facility] Visit, unable to obtain Vitals Height 72 in 05/21/2025 [facility] Tele[facility] Visit, unable to obtain Vitals Encounters Encounter Location Date Provider Diagnosis [address] [address] 08/09/2024 Saray Jade Depression F32.9 ; ADHD F90.9 and Anxiety F41.[address] [address] 09/13/2024 Viviana Oneale ADHD F90.9 ; Depression F32.9 and Anxiety F41.[address] [address] 10/11/2024 Viviana Krikie ADHD F90.9 ; Depression F32.9 and Anxiety F41.[address] [address] 11/08/2024 Viviana Krikie ADHD F90.9 ; Depression F32.9 and Anxiety F41.[address] [address] 12/05/2024 Viviana Krikie ADHD F90.9 ; Depression F32.9 and Anxiety F41.[address] [address] 01/02/2025 Viviana Krikie ADHD F90.9 ; Depression F32.9 and Anxiety F41.[address] [address] 01/30/2025 Eric Garcia ADHD F90.9 ; Depression F32.9 and Anxiety F41.[address] [address] 03/25/2025 Viviana Krmihire ADHD F90.9 ; Depression F32.9 and Anxiety F41.9 [facility] [address] [place] [address] 04/23/2025 Viviana Krmihire ADHD F90.9 ; Depression F32.9 ; Anxiety F41.9 and Insomnia G47.[address] [address] 05/21/2025 Viviana Krmihire ADHD F90.9 ; Depression F32.9 and Anxiety F41.9 [facility] [address] [place] [address] 09/03/2024 Viviana Krikie ADHD F90.9 and Depression F32.9 [facility] [address] [place] [address] 01/30/2025 Eric Garcia [address] [address] 02/27/2025 Viviana Krmihire ADHD F90.9 and Depression F32.[address] [address] 06/19/2025 Viviana Krikie ADHD F90.[address] [address] 07/15/2025 Viviana Felix [facility] [address] [place] [address] 09/05/2024 Viviana Washington [address] [address] 09/05/2024 Viviana Washington [facility] [address] [place] [address] 03/20/2025 Viviana Washington [facility] [address] [address] [place] [address] 06/20/2025 Viviana Washington [place] [id number] [address] [place] [address] 06/20/2025 Viviana Washington Assessments Encounter Date Diagnosis (ICD Code) Assessment Notes Treatment Notes Treatment Clinical Notes Section Notes 08/09/2024 Depression (ICD-10 - F32.9) 08/09/2024 ADHD (ICD-10 - F90.9) 09/03/2024 ADHD (ICD-10 - F90.9) 09/13/2024 Depression (ICD-10 - F32.9) 09/13/2024 ADHD (ICD-10 - F90.9) 10/11/2024 Depression (ICD-10 - F32.9) 10/11/2024 ADHD (ICD-10 - F90.9) 11/08/2024 Depression (ICD-10 - F32.9) 11/08/2024 ADHD (ICD-10 - F90.9) 12/05/2024 Depression (ICD-10 - F32.9) 12/05/2024 ADHD (ICD-10 - F90.9) 01/02/2025 Depression (ICD-10 - F32.9) 01/02/2025 ADHD (ICD-10 - F90.9) 01/30/2025 ADHD (ICD-10 - F90.9) 02/27/2025 ADHD (ICD-10 - F90.9) 03/25/2025 Depression (ICD-10 - F32.9) 03/25/2025 ADHD (ICD-10 - F90.9) 04/23/2025 Depression (ICD-10 - F32.9) 04/23/2025 ADHD (ICD-10 - F90.9) 05/21/2025 Depression (ICD-10 - F32.9) 05/21/2025 ADHD (ICD-10 - F90.9) 06/19/2025 ADHD (ICD-10 - F90.9) 05/21/2025 Anxiety (ICD-10 - F41.9) 04/23/2025 Anxiety (ICD-10 - F41.9) 03/25/2025 Anxiety (ICD-10 - F41.9) 02/27/2025 Depression (ICD-10 - F32.9) 01/30/2025 Depression (ICD-10 - F32.9) 01/02/2025 Anxiety (ICD-10 - F41.9) 12/05/2024 Anxiety (ICD-10 - F41.9) 11/08/2024 Anxiety (ICD-10 - F41.9) 10/11/2024 Anxiety (ICD-10 - F41.9) 09/13/2024 Anxiety (ICD-10 - F41.9) 09/03/2024 Depression (ICD-10 - F32.9) 08/09/2024 Anxiety (ICD-10 - F41.9) 01/30/2025 Anxiety (ICD-10 - F41.9) 04/23/2025 Insomnia (ICD-10 - G47.00) 09/13/2024 Other Medication [...] go to ER if having suicidal thoughts. 10/11/2024 Other Medication education and side effects discussed. Emergency services were discussed with patient. Instructed patient to go to ER if having suicidal thoughts. 04/23/2025 Other Medication education and side effects discussed. Emergency services were discussed with patient. Instructed patient to go to ER if having suicidal thoughts. 05/21/2025 Other Medication education and side effects discussed. Emergency services were discussed with patient. Instructed patient to go to ER if having suicidal thoughts. 01/02/2025 Other Medication education and side effects discussed. Emergency services were discussed with patient. Instructed patient to go to ER if having suicidal thoughts. 03/25/2025 Other Medication education and side effects discussed. Emergency services were discussed with patient. Instructed patient to go to ER if having suicidal thoughts. 01/30/2025 Other Clonidine material was published, Cariprazine material was published Discussed with patient the side effects to current psychotropic medication. Patient reports no known allergies to psychotropic medication. Medication education done by nurse and staff. Emergency services and follow up was discussed with patient. Patient made aware to call with any changes Instructed to go to the ER if having suicidal thougthts Patient instructed that they can call the [facility] for crisis after hours or the office for after hours emergencies. Suicide and Crisis Lifeline 986 Plan Of Treatment No Information Insurance Providers Payer Name Payer Address Payer Phone Subscriber Number Group Number Insured Name Patient Relationship to Insured Coverage Start Date Coverage End Date [facility] FQHC [address] [place] [phone] [id number] Nova, Gómez Self - patient is the insured 2 [facility] FFS [address] [place] [address] [id number] Nova, Gómez Self - patient is the insured 2 [facility] Nonbillable [address] [place] [phone] [id number] Nova, Gómez Self - patient is the insured 2 Medical (General) History Medical History History ICD Code Anxiety F41.9 Depression F32.9 Insomnia, unspecified G47.00 Sleep apnea G47.30 Bipolar disorder, unspecified F31.9 Hospitalization History Reason Date(Month/Year) Hospitalization-Attempted Suicide 2008
--- OUTSIDE RECORDS SUMMARY | 2025-07-21 10:08 | XMS_ITS | Clinical Summary ---
Author Organization [facility] Address [address] [place] [address] [place] [address] Care Team Providers Care Tipple Repairer Name Role Phone Unavailable Primary Care Provider Unavailabl e Medications lisdexamfetamin e (Vyvanse) 60 mg capsule Take 1 Capsule (60 mg) by mouth daily in the morning. Max Daily Amount: 60 mg 30 Capsule 09/12/2023 5:13 PM PROJECT ENG 09/12/2023 Active lisdexamfetamin e (Vyvanse) 60 mg capsule Take 1 Capsule (60 mg) by mouth daily in the morning. Max Daily Amount: 60 mg 30 Capsule 01/31/2024 5:05 PM CDT 01/31/2024 Active Social History Tobacco Use Types Packs/Day Years Used Date Smoking Tobacco: Never Assessed Sex and Gender Information Value Date Recorded Sex Assigned at Male 08/15/2023 9:45 AM PROJECT ENG Legal Sex Male 9:21 AM PROJECT ENG Gender Identity Male 08/15/2023 9:45 AM PROJECT ENG Sexual Orientation Straight 08/15/2023 9: 45 AM PROJECT ENG Plan of Treatment Health Maintenance Due Date Last Done Comments DTAP/TDAP/TD VACCINES (1 - Tdap) 2011 HEPATITIS B VACCINES (1 of 3 - 19+ 3-dose series) 10/2010 INFLUENZA VACCINE (#1) 2025 HPV VACCINES (No Doses Required) Completed Insurance [employer] Commercial
[2025-07-21 13:24] VITALS: BP 136/99; PULSE 96; RESP 17; TEMP 36.6; O2SAT 95
--- NOTE | 2025-07-21 13:39 | ED.PSYCH ---
HPI - Psych General Chief Complaint: Psychiatric Symptoms Stated Complaint: PSYCH EVAL Time Seen by Provider: 07/21/25 09:47 Source: patient Mode of arrival: ambulatory Limitations: no limitations History of Present Illness HPI Narrative: 35-year-old with a history of bipolar disorder, methamphetamine abuse here for psychiatric admission. Patient was seen earlier left the ER and back again requested for admission. He denies having any chest pain shortness of breath. complaint: other (halluciantions) Relieving factors: none Exacerbating factors: none Context: recent drug abuse Associated psychiatric symptoms: none Associated symptoms: denies other symptoms Related Data Home Medications ?Medication ?Instructions ?Recorded ?Confirmed ?Last Taken ?Type buprenorphine 2 mg-naloxone 0.5 mg 2 film buccal TID 01/15/20 07/20/25 Unknown History sublingual film (Suboxone) bupropion HCl 100 mg tablet,12 hr 100 mg PO DAILY 01/15/20 01/15/20 Unknown History sustained-release (Wellbutrin SR) quetiapine 100 mg tablet (Seroquel) 100 mg PO HS 01/15/20 07/20/25 Unknown History quetiapine 25 mg tablet (Seroquel) 25 mg PO BID 01/15/20 01/15/20 Unknown History lisdexamfetamine 60 mg capsule mg 07/20/25 Unknown History (Vyvanse) Allergies Allergy/AdvReac Type Severity Reaction Status Date / Time No Known Allergies Allergy Verified 07/21/25 09:36 Review of Systems Review of Systems: All systems reviewed & are unremarkable except as noted in HPI and below Constitutional: Constitutional: Reports no additional constitutional complaints Eyes: Eyes: Reports no additional eye complaints ENT: Reports system reviewed and no additional complaints, except as documented Cardiovascular: Cardiovascular: Reports no additional cardiovascular complaints Respiratory: Respiratory: Reports no additional respiratory complaints Gastrointestinal: Gastrointestinal: Reports no additional gastrointestinal complaints Musculoskeletal: Musculoskeletal: Reports no additional musculoskeletal complaints Psychiatric: Psychiatric: Reports as per HPI PMFSH Past Medical History Medical History Bipolar 1 disorder Social History Social History Substance use: current Substance use type: methamphetamine and unknown Gender identity (if verbalized by the patient): Male Exam Narrative: GENERAL: Well-appearing, well-nourished, and in no acute distress. HEAD: Normocephalic, atraumatic. EYES: PERRLA and EOMI. ENT: Nares clear, no rhinorrhea or epistaxis. Mucous membranes moist. NECK: Supple. CHEST: Clear to auscultation. No respiratory distress. HEART: Regular rate and rhythm. No murmur heard. Normal peripheral pulses. ABDOMEN: Soft, nontender, nondistended, normal active bowel sounds. EXTREMITIES: Normal range of motion. No edema. SKIN: Warm, dry, no rash. NEURO: No focal deficits. Alert and oriented x3. PSYCH: Normal mood and affect. Course Course Emergency Course: pt remained calm informed him about trying to find a psychiatric bed. Vital Signs Vital signs: Vital Signs Temperature 36.5 C 07/21/25 09:43 Pulse Rate 72 07/21/25 09:43 Respiratory Rate 18 07/21/25 09:43 Blood Pressure 143/93 H 07/21/25 09:43 Pulse Oximetry 100 07/21/25 09:43 Oxygen Delivery Room Air 07/21/25 09:43 Temperature 36.6 C 07/21/25 13:24 Pulse Rate 96 07/21/25 13:24 Respiratory Rate 17 07/21/25 13:24 Blood Pressure 136/99 H 07/21/25 13:24 Pulse Oximetry 95 07/21/25 13:24 Oxygen Delivery Room Air 07/21/25 09:43 MDM Differential Diagnosis Differential Diagnosis: Bipolar disorder Discharge Plan Discharge Clinical Impression: Methamphetamine abuse, Bipolar 1 disorder Patient Disposition: Psychiatric Hosp Condition: Stable Patient Language: Panamanian Prescriptions: No Action quetiapine [Seroquel] 25 mg Tablet 25 mg PO BID quetiapine [Seroquel] 100 mg Tablet 100 mg PO HS bupropion HCl [Wellbutrin SR] 100 mg Tablet Sustained-Release 12 Hr 100 mg PO DAILY buprenorphine-naloxone [Suboxone] 2-0.5 mg Film 2 film BUCCAL TID ibuprofen 800 mg tablet 800 mg PO TID PRN (Reason: pain) Qty: 20 0RF hydrocortisone 2.5 % lotion 1 applic topical TID PRN (Reason: itching) Qty: 59 0RF lisdexamfetamine [Vyvanse] 60 mg capsule Follow-up/Referrals: PHYSICIAN,POSSUM TRAPPER [Primary Care Provider, Internal Medicine] Time of Disposition: 13:39
== END 2025-07-21 13:26 ==
PROVIDERS: Emergency Provider Family Medicine
DX: F31.9 Bipolar disorder, unspecified (principal); F15.10 Other stimulant abuse, uncomplicated
CPT/HCPCS: 99284